=== PATIENT | male | born 1990 | race African-American/Black ===

== ENCOUNTER 2023-03-04 22:34 | Observation (INO) | payer OTHER ==
[2023-03-04] MEDS ORDERED: SODIUM CHLORIDE 0.9% 1,000 ML IV STA (22:43)
[2023-03-04] MEDS ORDERED: NITROGLYCERIN SL TABS 0.4 MG TAB SUBLINGUAL STA (22:43)
[2023-03-04] MEDS ORDERED: METOPROLOL TARTRATE 5 MG/5 ML VIAL IVP STA (22:43)
[2023-03-04] MEDS ORDERED: ASPIRIN 81 MG PO STA (22:43)
[2023-03-04] MEDS ORDERED: THIAMINE 100 MG/ML 2 ML VIAL IM STA (22:52)
[2023-03-04] MEDS ORDERED: LORazepam 1 MG TAB PO PRN ×2 (22:52)
--- NOTE | 2023-03-04 23:05 | ED ---
General Adult HPI - General Chief complaint: Chest Pain Stated complaint: Chest Pain Time Seen by Provider: 03/04/23 22:35 Source: patient, RN notes reviewed, old records reviewed Mode of arrival: EMS Limitations: no limitations - History of Present Illness Initial comments: Patient is a 32-year-old male who presents emergency Department complaining of multiple days of chest pain. Patient has a significant history for chronic neuropathy, without his gabapentin medication for multiple weeks as well as chronic intermittent chest pain without his Lopressor for multiple weeks. Also has a history of tachycardia. Has a history of a pericardial window status post pericardial effusion of unknown etiology which, per patient physicians were unable to discover why accumulated. Denies any history of cardiac stents. Denies any history cardiac stents, CAD. Is complaining of typical right lower extremity pain when he is missing his gabapentin as well as some right-sided chest pain that is not reproducible on palpation but somewhat reproducible with movement. Endorses some mild discomfort when breathing due to the pain. Endorses some mild lower abdominal pain that is not specifically located. Patient does have a history of alcohol abuse as well as alcohol withdrawals with seizures. Last alcohol drink was earlier this evening, drinking 3 shots. Denies feeling like he is in withdrawals at this time. Called EMS over concern for his chest pain which is not improving, and the fact that he is out of his medications. He follows up in [facility] with a civil engineering manager there. - Related Data Allergies Allergy/AdvReac Type Severity Reaction Status Date / Time No Known Allergies Allergy Verified 03/04/23 22:36 Review of Systems ROS Statement: Those systems with pertinent positive or pertinent negative responses have been documented in the HPI. Review of Systems: CONST: Denies fever EYES: Denies blurry vision ENT: Denies nasal congestion C/V: Endorses right-sided chest pain RESP: Denies shortness of breath GI: Endorses nonspecific abdominal pain : Denies dysuria SKIN: Denies rash. MSK: Denies joint pain. NEURO: Denies headache ROS Other: All systems not noted in ROS Statement are negative. Past Medical History Past Medical History: CVA/TIA, Hypertension History of Any Multi-Drug Resistant Organisms: None Reported Past Psychological History: No Psychological Hx Reported Smoking Status: Current every day smoker Past Alcohol Use History: Daily Past Drug Use History: None Reported General Exam - General Exam Comments Initial Comments: General: He is in mild distress secondary to chest pain HEAD: Normal with no signs of head trauma. EYES: PERRLA, EOMI, conjunctiva normal, no discharge. ENT: Hearing grossly intact, normal oropharynx. RESPIRATORY: Clear breath sounds bilaterally. No wheezes, rales, or rhonchi. C/V: Tachycardic with regular rhythm. S1 and S2 auscultated, no edema, peripheral pulses 2+ and intact throughout ABD: Abd is soft, nontender, nondistended. No obvious focal tenderness on palpation. EXT: Normal range of motion, no obvious deformity SKIN: No rashes or lesions observed on exposed skin. NEURO: Alert and oriented x 4. Cranial nerves II-XII intact. No focal sensory or strength deficits.. No tremors. No tongue fasciculations. Limitations: no limitations Course Vital Signs 03/04/23 03/04/23 03/04/23 22:36 22:43 22:51 Temperature 98.1 F Pulse Rate 129 H 112 H 123 H Pulse Rate [ Pulse Oximetery ] Respiratory 20 18 Rate Blood Pressure 196/134 177/131 169/135 O2 Sat by Pulse 100 Oximetry 03/04/23 03/04/23 03/04/23 22:53 23:02 23:21 Temperature Pulse Rate 116 H 79 Pulse Rate [ 114 H Pulse Oximetery ] Respiratory 20 15 Rate Blood Pressure 155/114 174/132 O2 Sat by Pulse 97 98 Oximetry 03/05/23 03/05/23 03/05/23 00:05 00:41 00:45 Temperature Pulse Rate 82 75 Pulse Rate [ Pulse Oximetery ] Respiratory 18 18 Rate Blood Pressure 185/134 187/140 185/132 O2 Sat by Pulse 99 97 Oximetry 03/05/23 03/05/23 03/05/23 01:06 01:31 02:00 Temperature Pulse Rate 94 93 98 Pulse Rate [ Pulse Oximetery ] Respiratory 18 18 Rate Blood Pressure 179/127 163/117 168/120 O2 Sat by Pulse Oximetry 03/05/23 03:00 Temperature Pulse Rate 97 Pulse Rate [ Pulse Oximetery ] Respiratory 18 Rate Blood Pressure 162/119 O2 Sat by Pulse 97 Oximetry Medical Decision Making - Medical Decision Making Was pt. sent in by a medical professional or institution (, PA, SCENE PAINTER, urgent care, hospital, or [facility]...) When possible be specific @ -No Did you speak to anyone other than the patient for history (EMS, parent, family, police, friend...)? What history was obtained from this source @ -No Did you review nursing and triage notes (agree or disagree)? Why? @ -I reviewed and agree with nursing and triage notes Were old charts reviewed (outside hosp., previous admission, EMS record, old EKG, old radiological studies, urgent care reports/EKG's, [facility] records)? Report findings @ -No old charts available for review Differential Diagnosis (chest pain, altered mental status, abdominal pain women, abdominal pain men, vaginal bleeding, weakness, fever, dyspnea, syncope, headache, dizziness, GI bleed, back pain, seizure, CVA, palpatations, mental health, musculoskeletal)? @ -Differential Chest Pain: Stable Angina, Unstable Angina, STEMI, NSTEMI Aortic Dissection, Pneumothorax, Musculoskeletal, Esophageal Spasm GERD, Cholecystitis, Pancreatitis, Zoster, this is not meant to be an all-inclusive list. EKG interpreted by me (3pts min.). @ -As above X-rays interpreted by me (1pt min.). @ -Chest x-ray revealed no obvious cardiopulmonary process. CT interpreted by me (1pt min.). @ -CT of the aorta revealed no obvious aortic injury, dissection, PE. U/S interpreted by me (1pt. min.). @ -None done What testing was considered but not performed or refused? (CT, X-rays, U/S, labs)? Why? @ -None What meds were considered but not given or refused? Why? @ -None Did you discuss the management of the patient with other professionals (professionals i.e. , PA, SCENE PAINTER, lab, RT, psych nurse, social media director, shot tube machine tender, teacher, supply requirements officer, piano case maker)? Give summary @ -Discussed admission with Dr. Suarez who is city call who accepted the patient. Was smoking cessation discussed for >3mins.? @ -No Was critical care preformed (if so, how long)? @ -yes, 35 min Were there social determinants of health that impacted care today? How? (Homelessness, low income, unemployed, alcoholism, drug addiction, transporta tion, low edu. Level, literacy, decrease access to med. care, usp, rehab)? @ -No Was there de-escalation of care discussed even if they declined (Discuss DNR or withdrawal of care, Hospice)? DNR status @ -No What co-morbidities impacted this encounter? (DM, HTN, Smoking, COPD, CAD, Cancer, CVA, ARF, Chemo, Hep., AIDS, mental health diagnosis, sleep apnea, morbid obesity)? @ -Pericardial effusion status post pericardial window, hypertension, chronic neuropathy Was patient admitted / discharged? Hospital course, mention meds given and route, prescriptions, significant lab abnormalities, going to OR and other pertinent info. @ -Based on the patient's presentation and physical exam, and is concerned for possible cardiopulmonary etiology for his current symptoms. Cannot rule out aortic injury due to his history of previous pericardial effusion as well as him having what he states is chronic pain in his right lower extremity but also having nonspecific abdominal pain as well as the chest pain. Has been noncompliant with medications and presents hypertensive and tachycardic. Received aspirin from EMS. Also received a nitro which he states may have mi nimally improved his chest pain. We will obtain cardiopulmonary labs. Also we'll obtain an aortic computed tomography scan and a chest x-ray. We will attempt treatment of this chest pain with further nitroglycerin tablets. I'll call withdrawal protocol was ordered for him as well, and currently does not appear to be in any alcohol withdrawals. He will receive a 1 L fluid bolus as well as doses of his Lopressor. He was in agreement this plan. EKG shows sinus tachycardia, with T-wave inversions in V5 and V6. Unknown chronicity. Nitro tablets has not improved symptoms after administering 3 sublingual tabs. This time we will switch to his normal gabapentin as well as provide him with metoprolol and he was in agreement this plan. Patient's imaging is unremarkable. Laboratory studies are remarkable for a hypomagnesemia of 1.1 which is replenished. Patient also has an elevated tropo alicia in the setting of chest pain that is atypical. Patient's acutely intoxicated with alcohol at 346. On reevaluation, patient is feeling somewhat improved. Blood pressure still elevated but heart rate is under better control. I will provide him with a dose of hydralazine. We did discuss his workup. He will be started on a heparin drip over concern for an NSTEMI in the setting of atypical chest pain, however his chest pain is improved at this time. He was in agreement with this plan. Cardiology is consulted to evaluate the patient in the morning. I spoke with the admitting physician, Dr. Suarez who accepted the admission. Request sent to [facility] for records for the patient. Undiagnosed new problem with uncertain prognosis? @ -No Drug Therapy requiring intensive monitoring for toxicity (Heparin, Nitro, Insul in, Cardizem)? @ -Heparin Were any procedures done? @ -No Diagnosis/symptom? @ -Chest pain, concern for NSTEMI. Acute, or Chronic, or Acute on Chronic? @ -Acute Uncomplicated (without systemic symptoms) or Complicated (systemic symptoms)? @ -Uncomplicated Side effects of treatment? @ -none Exacerbation, Progression, or Severe Exacerbation] @ -no Poses a threat to life or bodily function? @ -Potentially yes Diagnosis/symptom? @ -Hypomagnesemia Acute, or Chronic, or Acute on Chronic? @ -Acute Uncomplicated (without systemic symptoms) or Complicated (systemic symptoms)? @ -Uncomplicated Side effects of treatment? @ -none Exacerbation, Progression, or Severe Exacerbation] @ -no Poses a threat to life or bodily function? @ -Yes Diagnosis/symptom? @ -Alcohol intoxication with history of withdrawal Acute, or Chronic, or Acute on Chronic? @ -Acute Uncomplicated (without systemic symptoms) or Complicated (systemic symptoms)? @ -Uncomplicated Side effects of treatment? @ -none Exacerbation, Progression, or Severe Exacerbation] @ -no Poses a threat to life or bodily function? @ -Potentially if the patient enters withdrawals. Diagnosis/symptom? @ -Hypertension, medication noncompliance Acute, or Chronic, or Acute on Chronic? @ -Acute on chronic Uncomplicated (without systemic symptoms) or Complicated (systemic symptoms)? @ -Uncomplicated Side effects of treatment? @ -none Exacerbation, Progression, or Severe Exacerbation] @ -no Poses a threat to life or bodily function? @ -no - Lab Data Result diagrams: 03/04/23 22:47 03/04/23 22:47 Lab Results 03/04/23 03/04/23 03/04/23 Range/Units 00:05 22:47 22:47 WBC 3.0 L (3.8-10.6) k/uL RBC 4.06 L (4.30-5.90) m/uL Hgb 12.8 L (13.0-17.5) gm/dL Hct 36.6 L (39.0-53.0) % MCV 90.2 (80.0-100.0) fL MCH 31.5 (25.0-35.0) pg MCHC 34.9 (31.0-37.0) g/dL RDW 14.5 (11.5-15.5) % Plt Count 188 (150-450) k/uL MPV 8.8 Neutrophils % (Manual) 18 % Lymphocytes % (Manual) 72 % Monocytes % (Manual) 10 % Neutrophils # (Manual) 0.54 L (1.3-7.7) k/uL Lymphocytes # (Manual) 2.16 (1.0-4.8) k/uL Monocytes # (Manual) 0.30 (0-1.0) k/uL Nucleated RBCs 2 H (0-0) /100 WBC Manual Slide Review Performed Polychromasia Present Poikilocytosis (manual Present PT 11.8 (9.0-12.0) sec INR 1.1 (<1.2) APTT 22.5 (22.0-30.0) sec Sodium (137-145) mmol/L Potassium (3.5-5.1) mmol/L Chloride (98-107) mmol/L Carbon Dioxide (22-30) mmol/L Anion Gap mmol/L BUN (9-20) mg/dL Creatinine (0.66-1.25) mg/dL Est GFR (CKD-EPI)AfAm (>60 ml/min/1.73 sqM) Est GFR (CKD-EPI)NonAf (>60 ml/min/1.73 sqM) Glucose (74-99) mg/dL Calcium (8.4-10.2) mg/dL Magnesium (1.6-2.3) mg/dL Total Bilirubin (0.2-1.3) mg/dL AST (17-59) U/L ALT (4-49) U/L Alkaline Phosphatase (38-126) U/L Troponin I (0.000-0.034) ng/mL NT-Pro-B Natriuret Pep pg/mL Total Protein (6.3-8.2) g/dL Albumin (3.5-5.0) g/dL Lipase (23-300) U/L Urine Color Yellow Urine Appearance Clear (Clear) Urine pH 7.0 (5.0-8.0) Ur Specific Hurley 1.014 (1.001-1.035) Urine Protein 3+ H (Negative) Urine Glucose (UA) Negative (Negative) Urine Ketones Negative (Negative) Urine Blood Trace H (Negative) Urine Nitrite Negative (Negative) Urine Bilirubin Negative (Negative) Urine Urobilinogen <2.0 (<2.0) mg/dL Ur Leukocyte Esterase Negative (Negative) Urine RBC 1 (0-5) /hpf Urine WBC 1 (0-5) /hpf Hyaline Casts 7 H (0-2) /lpf Urine Mucus Rare H (None) /hpf Serum Alcohol mg/dL 03/04/23 03/04/23 03/04/23 Range/Units 22:47 22:47 22:47 WBC (3.8-10.6) k/uL RBC (4.30-5.90) m/uL Hgb (13.0-17.5) gm/dL Hct (39.0-53.0) % MCV (80.0-100.0) fL MCH (25.0-35.0) pg MCHC (31.0-37.0) g/dL RDW (11.5-15.5) % Plt Count (150-450) k/uL MPV Neutrophils % (Manual) % Lymphocytes % (Manual) % Monocytes % (Manual) % Neutrophils # (Manual) (1.3-7.7) k/uL Lymphocytes # (Manual) (1.0-4.8) k/uL Monocytes # (Manual) (0-1.0) k/uL Nucleated RBCs (0-0) /100 WBC Manual Slide Review Polychromasia Poikilocytosis (manual PT (9.0-12.0) sec INR (<1.2) APTT (22.0-30.0) sec Sodium 145 (137-145) mmol/L Potassium 3.7 (3.5-5.1) mmol/L Chloride 104 (98-107) mmol/L Carbon Dioxide 28 (22-30) mmol/L Anion Gap 13 mmol/L BUN 6 L (9-20) mg/dL Creatinine 0.55 L (0.66-1.25) mg/dL Est GFR (CKD-EPI)AfAm >90 (>60 ml/min/1.73 sqM) Est GFR (CKD-EPI)NonAf >90 (>60 ml/min/1.73 sqM) Glucose 123 H (74-99) mg/dL Calcium 8.6 (8.4-10.2) mg/dL Magnesium 1.1 L (1.6-2.3) mg/dL Total Bilirubin 1.1 (0.2-1.3) mg/dL AST 93 H (17-59) U/L ALT 62 H (4-49) U/L Alkaline Phosphatase 97 (38-126) U/L Troponin I 0.050 H* (0.000-0.034) ng/mL NT-Pro-B Natriuret Pep 188 pg/mL Total Protein 7.8 (6.3-8.2) g/dL Albumin 4.3 (3.5-5.0) g/dL Lipase 60 (23-300) U/L Urine Color Urine Appearance (Clear) Urine pH (5.0-8.0) Ur Specific Hurley (1.001-1.035) Urine Protein (Negative) Urine Glucose (UA) (Negative) Urine Ketones (Negative) Urine Blood (Negative) Urine Nitrite (Negative) Urine Bilirubin (Negative) Urine Urobilinogen (<2.0) mg/dL Ur Leukocyte Esterase (Negative) Urine RBC (0-5) /hpf Urine WBC (0-5) /hpf Hyaline Casts (0-2) /lpf Urine Mucus (None) /hpf Serum Alcohol mg/dL 03/04/23 Range/Units 22:53 WBC (3.8-10.6) k/uL RBC (4.30-5.90) m/uL Hgb (13.0-17.5) gm/dL Hct (39.0-53.0) % MCV (80.0-100.0) fL MCH (25.0-35.0) pg MCHC (31.0-37.0) g/dL RDW (11.5-15.5) % Plt Count (150-450) k/uL MPV Neutrophils % (Manual) % Lymphocytes % (Manual) % Monocytes % (Manual) % Neutrophils # (Manual) (1.3-7.7) k/uL Lymphocytes # (Manual) (1.0-4.8) k/uL Monocytes # (Manual) (0-1.0) k/uL Nucleated RBCs (0-0) /100 WBC Manual Slide Review Polychromasia Poikilocytosis (manual PT (9.0-12.0) sec INR (<1.2) APTT (22.0-30.0) sec Sodium (137-145) mmol/L Potassium (3.5-5.1) mmol/L Chloride (98-107) mmol/L Carbon Dioxide (22-30) mmol/L Anion Gap mmol/L BUN (9-20) mg/dL Creatinine (0.66-1.25) mg/dL Est GFR (CKD-EPI)AfAm (>60 ml/min/1.73 sqM) Est GFR (CKD-EPI)NonAf (>60 ml/min/1.73 sqM) Glucose (74-99) mg/dL Calcium (8.4-10.2) mg/dL Magnesium (1.6-2.3) mg/dL Total Bilirubin (0.2-1.3) mg/dL AST (17-59) U/L ALT (4-49) U/L Alkaline Phosphatase (38-126) U/L Troponin I (0.000-0.034) ng/mL NT-Pro-B Natriuret Pep pg/mL Total Protein (6.3-8.2) g/dL Albumin (3.5-5.0) g/dL Lipase (23-300) U/L Urine Color Urine Appearance (Clear) Urine pH (5.0-8.0) Ur Specific Hurley (1.001-1.035) Urine Protein (Negative) Urine Glucose (UA) (Negative) Urine Ketones (Negative) Urine Blood (Negative) Urine Nitrite (Negative) Urine Bilirubin (Negative) Urine Urobilinogen (<2.0) mg/dL Ur Leukocyte Esterase (Negative) Urine RBC (0-5) /hpf Urine WBC (0-5) /hpf Hyaline Casts (0-2) /lpf Urine Mucus (None) /hpf Serum Alcohol 346 H* mg/dL - EKG Data -: EKG Interpreted by Me EKG Comments: 12-lead Electrocardiogram Interpretation Note EKG was reviewed and interpreted by myself. 12-lead ECG performed at 2237 is interpreted by me as revealing sinus tachycardia at a rate of 121 beats per minute. Left axis deviation. ME interval is 160 ms, QRS duration is 95 ms, QTc is 495 ms.. There were no ST abnormalities to suggest myocardial ischemia or injury. There are T-wave inversions in V5 and V6. R wave progression across the precordium was satisfactory. No prior EKG for comparison. Critical Care Time Critical Care Time: Yes Total Critical Care Time: 35 Disposition Clinical Impression: Chest pain, Elevated troponin, Hypomagnesemia, Alcohol intoxication, Hyp ertension, Noncompliance with medication regimen Disposition: ADMITTED IP TO THIS HOSP Condition: Stable Time of Disposition: 01:45
[2023-03-04] MEDS ORDERED: GABAPENTIN 100 MG CAP PO STA (23:09)
[2023-03-04] MEDS: METOPROLOL TARTRATE 25 MG TAB PO SCH (23:16)
--- NOTE | 2023-03-04 23:18 | XR ---
EXAMINATION TYPE: XR chest 1V portable DATE OF EXAM: 03/04/2023 11:02 PM COMPARISON: None TECHNIQUE: XR chest 1V portable Portable AP radiograph of the chest. CLINICAL INDICATION:Male, 32 years old with history of chest pain; FINDINGS: Lungs/Pleura: There is no evidence of pleural effusion, focal consolidation, or pneumothorax. Pulmonary vascularity: Unremarkable. Heart/mediastinum: Cardiomediastinal silhouette is unremarkable. Musculoskeletal: No acute osseous pathology. IMPRESSION: No acute cardiopulmonary disease/process.
[2023-03-04 23:26] LABS: HCT 36.6 % (39.0-53.0); HGB 12.8 gm/dL (13.0-17.5); MCH 31.5 pg (25.0-35.0); MCHC 34.9 g/dL (31.0-37.0); MCV 90.2 fL (80.0-100.0); Mean Platelet Volume 8.8; Platelet Count 188 k/uL (150-450); RBC 4.06 m/uL (4.30-5.90); RDW 14.5 % (11.5-15.5)
[2023-03-04 23:30] LABS: ALT 62 U/L (4-49); African American GFR (CKD) >90 (>60 ml/min/1.73 sqM); Anion Gap 13 mmol/L; Blood Urea Nitrogen 6 mg/dL (9-20); Calcium 8.6 mg/dL (8.4-10.2); Carbon Dioxide 28 mmol/L (22-30); Chloride 104 mmol/L (98-107); Glucose 123 mg/dL (74-99); Lipase 60 U/L (23-300); Non-African American GFR(CKD) >90 (>60 ml/min/1.73 sqM); Sodium 145 mmol/L (137-145); Total Bilirubin 1.1 mg/dL (0.2-1.3)
[2023-03-04 23:31] LABS: INR 1.1 (<1.2); Partial Thromboplastin Time 22.5 sec (22.0-30.0); Prothrombin Time 11.8 sec (9.0-12.0)
[2023-03-04 23:38] LABS: Magnesium 1.1 mg/dL (1.6-2.3); Potassium 3.7 mmol/L (3.5-5.1); Total Protein 7.8 g/dL (6.3-8.2)
[2023-03-04 23:39] LABS: AST 93 U/L (17-59); Albumin 4.3 g/dL (3.5-5.0); Alkaline Phosphatase 97 U/L (38-126)
[2023-03-05 00:13] LABS: Lymphocytes # (M) 2.16 k/uL (1.0-4.8); Neutrophils # (M) 0.54 k/uL (1.3-7.7); Neutrophils % (M) 18 %; Nucleated Red Blood Cells 2 /100 WBC (0-0); Total Cells Counted 100
[2023-03-05 00:14] LABS: Poikilocytosis (M) Present; Polychromasia Present
[2023-03-05 00:34] LABS: Appearance,Urine Clear (Clear); Bilirubin,Urine Negative (Negative); Blood,Urine Trace (Negative); Color,Urine Yellow; Glucose,Urine (UA) Negative (Negative); Hyaline Casts,Urine 7 /lpf (0-2); Ketones,Urine Negative (Negative); Leukocyte Esterase,Urine Negative (Negative); Mucus,Urine Rare /hpf; Nitrite,Urine Negative (Negative); Protein,Urine 3+ (Negative); RBC,Urine 1 /hpf (0-5); Specific Gravity,Urine 1.014 (1.001-1.035); Urobilinogen,Urine <2.0 mg/dL (<2.0); WBC,Urine 1 /hpf (0-5)
[2023-03-05] MEDS: MAGNESIUM SULFATE-D5W PMX 1 GM in DEXTROSE/WATER 1 100ML.BAG IVPB SCH ×6 (00:39→23:52)
[2023-03-05] MEDS ORDERED: hydrALAZINE HCL 20 MG/ML 1 ML VIAL IVP STA ×2 (00:49→02:52)
--- NOTE | 2023-03-05 02:05 | CT ---
EXAM: CT Angiography Chest With Intravenous Contrast CLINICAL HISTORY: ITS.REASON CT Reason: cp/abd pain. history of pericardial window. TECHNIQUE: Axial computed tomographic angiography images of the chest with intravenous contrast. CTDI is 40.89 mGy and DLP is 444.65 mGy-cm. This CT exam was performed using one or more of the following dose reduction techniques: automated exposure control, adjustment of the mA and/or kV according to patient size, and/or use of iterative reconstruction technique. MIP reconstructed images were created and reviewed. COMPARISON: No relevant prior studies available. FINDINGS: Pulmonary arteries: Unremarkable. No pulmonary embolism. Aorta: No acute findings.. Normal caliber. No dissection. Lungs: Unremarkable. Pleural space: Unremarkable. Heart: Unremarkable. Bones/joints: No acute fracture. Soft tissues: Unremarkable. Lymph nodes: Unremarkable. IMPRESSION: Normal chest CTA. No pulmonary embolism. EXAM: CT Angiography Abdomen and Pelvis With Intravenous Contrast CLINICAL HISTORY: ITS.REASON CT Reason: cp/abd pain. history of pericardial window. TECHNIQUE: Axial computed tomographic angiography images of the abdomen and pelvis with intravenous contrast. CTDI is 40.89 mGy and DLP is 444.65 mGy-cm. This CT exam was performed using one or more of the following dose reduction techniques: automated exposure control, adjustment of the mA and/or kV according to patient size, and/or use of iterative reconstruction technique. MIP reconstructed images were created and reviewed. COMPARISON: No relevant prior studies available. FINDINGS: VASCULATURE: Aorta: No acute findings. No abdominal aortic aneurysm. No dissection. Celiac trunk and mesenteric arteries: No acute findings. No occlusion or significant stenosis. Renal arteries: No acute findings. No occlusion or significant stenosis. Iliac arteries: No acute findings. No occlusion or significant stenosis. Lung bases: Unremarkable. No mass. No consolidation. ABDOMEN: Liver: Unremarkable. No mass. Gallbladder and bile ducts: Unremarkable. No calcified stones. No ductal dilation. Pancreas: Unremarkable. No ductal dilation. No mass. Spleen: Unremarkable. No splenomegaly. Adrenals: Unremarkable. No mass. Kidneys and ureters: Unremarkable. No hydronephrosis. No solid mass. Stomach and bowel: Unremarkable. No obstruction. No mucosal thickening. PELVIS: Appendix: No findings to suggest acute appendicitis. Bladder: Unremarkable. No mass. Reproductive: Unremarkable as visualized. ABDOMEN and PELVIS: Intraperitoneal space: Unremarkable. No significant fluid collection. No free air. Bones/joints: No acute fracture. No dislocation. Soft tissues: Unremarkable. Lymph nodes: Unremarkable. No enlarged lymph nodes. IMPRESSION: Normal arteries of the abdomen and pelvis.
[2023-03-05] MEDS ORDERED: KETOROLAC 15 MG/ML 1 ML VIAL IVP PRN (02:16)
[2023-03-05] MEDS ORDERED: NALOXONE 0.4 MG/ML 1 ML VIAL IV PRN (02:16)
[2023-03-05] MEDS ORDERED: HEPARIN SODIUM 1,000 UN/ML (10ML VL) IV ONE (02:22)
[2023-03-05] MEDS ORDERED: HEPARIN SODIUM 1,000 UN/ML (10ML VL) IV PRN (02:22)
[2023-03-05] MEDS ORDERED: HEPARIN SOD,PORK IN 0.45% NACL 25,000 UNIT in 0.45% NACL 1 250ML.BAG IV SCH (02:30)
[2023-03-05] MEDS: LORazepam 1 MG TAB PO PRN (02:49)
[2023-03-05] MEDS ORDERED: DOBUTamine DRIP for NUC MED 500 MG in DEXTROSE/WATER 1 250ML.BAG IV PRN (08:58)
--- NOTE | 2023-03-05 09:06 | P.CRDCN ---
History of Present Illness Consult date: 03/05/23 History of present illness: History of Present Illness: The patient is a 32-year-old male with a history of hypertension, chronic tobacco use and alcohol intake who presented after running out of his medication for over a week, complaining of a headache, not feeling well and had some right- sided chest discomfort. The discomfort was not exertional pattern. The patient has a history of neuropathy. He has no exertional chest pain. His breathing is stable he denies any history of PND, orthopnea or peripheral edema. He has no palpitations or syncope. He had a questionable history of CVA, the records are not available from his prior admission in [place]. He has a history of pancreatitis and daily alcohol intake. He is usually active according to him and has no exertional chest discomfort. Been seen by a physician recently. He has a prior history of pericarditis in 2011. His initial troponin was 0.05 subsequently 0.017 and 0.015. There is no evidence of acute ST segment changes on his EKG. Medications: The patient was supposed to be on metoprolol and gabapentin according to him but has not taken any for a while. Review of Systems: Respiratory: No history of asthma, bronchitis or recent cough. GI: No nausea or vomiting . No history of peptic ulcer disease. No recent GI bleed. : No hematuria or dysuria. Nervous System: No seizure. He was told that he had a prior stroke although details are not available Physical Examination: 32-year-old male, alert and oriented no apparent distress,Blood pressure 142/109, Heart rate 90 Head: Normocephalic. Eyes: Sclerae nonicteric. Neck: Good carotid upstroke, no bruit, no jugular venous distention. Lungs: Clear to auscultation. Heart: Regular rate and rhythm, S1-S2, no S3, plus S4, no rub. No murmur. Abdomen: Soft nontender, positive bowel sounds no organomegaly. Extremities: No edema, intact distal pulses. Labs: Potassium 3.7, hemoglobin 12.8, WBC 3.0. BUN 6, creatinine 0.55. Troponin 0.05 , 0.017, 0.015. NT proBNP 188. Computed tomography scan of the chest showed no evidence of pulmonary embolism. Chest x-ray unremarkable EKG: Sinus mechanism rate of [address] segment changes consistent with LVH Impression: 1. Hypertension, elevated, related to noncompliance, patient was not taking his medication 2. Troponin elevation on one sample no evidence of acute cardiac ischemia 3. Chronic tobacco use 4. Chronic alcohol intake 5. History of pericarditis Plan: 1. Restart beta bossman 2. Add amlodipine 3. Obtain an echocardiogram with Doppler 4. Dobutamine stress echocardiogram 5. If no evidence of stress-induced ischemia no further cardiac workup will be needed. 6. Smoking and alcohol cessation 7. Thank you for this consult we will follow with you. Past Medical History Past Medical History: CVA/TIA, Hypertension History of Any Multi-Drug Resistant Organisms: None Reported Past Psychological History: No Psychological Hx Reported Smoking Status: Current every day smoker Past Alcohol Use History: Daily Past Drug Use History: None Reported Medications and Allergies Home Medications Medication Instructions Recorded Confirmed Type No Known Home Medications 03/05/23 03/05/23 History Allergies Allergy/AdvReac Type Severity Reaction Status Date / Time No Known Allergies Allergy Verified 03/05/23 07:00 Physical Exam Vitals: Vital Signs Temp Pulse Pulse Resp BP Pulse Ox 03/05/23 05:00 105 H 18 142/109 97 03/05/23 03:59 101 H 17 155/114 97 03/05/23 03:00 97 18 162/119 97 03/05/23 02:00 98 18 168/120 03/05/23 01:31 93 163/117 03/05/23 01:06 94 18 179/127 03/05/23 00:45 185/132 03/05/23 00:41 75 18 187/140 97 03/05/23 00:05 82 18 185/134 99 03/04/23 23:21 79 15 174/132 98 03/04/23 23:02 116 H 20 155/114 97 03/04/23 22:53 114 H 03/04/23 22:51 123 H 169/135 03/04/23 22:43 98.1 F 112 H 18 177/131 100 03/04/23 22:36 129 H 20 196/134 Intake and Output 03/04/23 03/05/23 03/05/23 22:59 06:59 14:59 Other: Weight 68.039 kg Results 03/04/23 22:47 03/04/23 22:47 Cardiac Enzymes 03/04/23 03/04/23 03/05/23 Range/Units 22:47 22:47 02:55 AST 93 H (17-59) U/L Troponin I 0.050 H* 0.017 (0.000-0.034) ng/mL 03/05/23 Range/Units 08:04 AST (17-59) U/L Troponin I 0.015 (0.000-0.034) ng/mL Coagulation 03/04/23 03/05/23 Range/Units 22:47 08:04 PT 11.8 (9.0-12.0) sec APTT 22.5 36.5 H (22.0-30.0) sec CBC 03/04/23 Range/Units 22:47 WBC 3.0 L (3.8-10.6) k/uL RBC 4.06 L (4.30-5.90) m/uL Hgb 12.8 L (13.0-17.5) gm/dL Hct 36.6 L (39.0-53.0) % Plt Count 188 (150-450) k/uL Comprehensive Metabolic Panel 03/04/23 Range/Units 22:47 Sodium 145 (137-145) mmol/L Potassium 3.7 (3.5-5.1) mmol/L Chloride 104 (98-107) mmol/L Carbon Dioxide 28 (22-30) mmol/L BUN 6 L (9-20) mg/dL Creatinine 0.55 L (0.66-1.25) mg/dL Glucose 123 H (74-99) mg/dL Calcium 8.6 (8.4-10.2) mg/dL AST 93 H (17-59) U/L ALT 62 H (4-49) U/L Alkaline Phosphatase 97 (38-126) U/L Total Protein 7.8 (6.3-8.2) g/dL Albumin 4.3 (3.5-5.0) g/dL Current Medications Generic Name Dose Route Start Last Admin Trade Name Freq PRN Reason Stop Dose Admin Ketorolac Tromethamine 15 mg 03/05/23 02:16 Ketorolac 15 Mg/Ml 1 Ml Vial IVP 03/08/23 02:21 Q6HR PRN Moderate Pain (Scale 4 to 6) Lorazepam 0.5 mg 03/04/23 22:52 Lorazepam 0.5 Mg Tab PO Q4HR PRN Ciwa 4 To 5 Lorazepam 1 mg 03/04/23 22:52 Lorazepam 1 Mg Tab PO Q4HR PRN Ciwa 6 To 7 Lorazepam 2 mg 03/04/23 22:52 Lorazepam 1 Mg Tab PO Q2HR PRN Ciwa 10 or greater Lorazepam 2 mg 03/04/23 22:52 03/05/23 02:49 Lorazepam 1 Mg Tab PO 2 mg Q3HR PRN Administration Ciwa 8 To 9 Lorazepam 1 mg 03/04/23 22:52 Lorazepam 1 Mg Tab PO Q1HR PRN Alcohol Withdrawal Metoprolol Tartrate 25 mg 03/04/23 22:45 03/04/23 23:16 Metoprolol Tartrate 25 Mg Tab PO 25 mg BID CIRILO Administration Naloxone HCl 0.2 mg 03/05/23 02:16 Naloxone 0.4 Mg/Ml 1 Ml Vial IV Q2M PRN Opioid Reversal Thiamine HCl 100 mg 03/05/23 09:00 Thiamine 100 Mg Tab PO DAILY CIRILO Intake and Output 03/04/23 03/05/23 03/05/23 22:59 06:59 14:59 Other: Weight 68.039 kg 03/04/23 22:47 03/04/23 22:47
[2023-03-05] MEDS ORDERED: amLODIPine 5 MG TAB PO SCH (09:15)
[2023-03-05] MEDS: LORazepam 0.5 MG TAB PO PRN ×3 (09:42→23:52)
[2023-03-05] MEDS: THIAMINE 100 MG TAB PO SCH (09:42)
[2023-03-05] MEDS: METOPROLOL TARTRATE 25 MG TAB PO SCH ×2 (09:42→20:17)
[2023-03-05] MEDS ORDERED: amLODIPine 5 MG TAB PO STA (11:05)
--- NOTE | 2023-03-05 11:58 | CA ---
Transthoracic Echo Report Name: Arnel Orosco Age: 32 Gender: M : 1990 Exam Date: 03/05/2023 10:41 Exam Location: [facility] Ht (in): 72 Wt (lb): 150 Ordering Physician: Ivan Dela Cruz MD ([id number]) Attending/Referring Phys: Decontamination Worker Nilda Salazar RDCS Procedure CPT: Indications: CP Cardiac Hx: Technical Quality: Good Contrast 1: Total Dose (mL): Contrast 2: Total Dose (mL): MEASUREMENTS (Male / Female) Normal Values 2D ECHO LV Diastolic Diameter PLAX 3.8 cm 4.2 - 5.9 / 3.9 - 5.3 cm LV Systolic Diameter PLAX 2.6 cm IVS Diastolic Thickness 1.4 cm 0.6 - 1.0 / 0.6 - 0.9 cm LVPW Diastolic Thickness 1.5 cm 0.6 - 1.0 / 0.6 - 0.9 cm LV Relative Wall Thickness 0.8 RV Internal Dim ED PLAX 2.7 cm LA Systolic Diameter LX 2.6 cm 3.0 - 4.0 / 2.7 - 3.8 cm LV Diastolic Volume MOD BP 75.1 cm??? 67 - 155 / 56 - 104 cm??? LV Systolic Volume MOD BP 47.3 cm??? 22 - 58 / 19 - 49 cm??? LV Ejection Fraction MOD BP 36.9 % >= 55 % LV Diastolic Volume MOD 4C 69.4 cm??? LV Systolic Volume MOD 4C 35.0 cm??? LV Ejection Fraction MOD 4C 49.6 % LV Diastolic Length 4C 7.7 cm LV Systolic Length 4C 6.3 cm LV Diastolic Volume MOD 2C 76.7 cm??? LV Systolic Volume MOD 2C 51.5 cm??? LV Ejection Fraction MOD 2C 32.9 % LV Diastolic Length 2C 8.9 cm LV Systolic Length 2C 8.3 cm M-MODE Aortic Root Diameter MM 3.6 cm MV E Point Septal Separation 0.4 cm AV Cusp Separation MM 2.7 cm DOPPLER AV Peak Velocity 103.4 cm/s AV Peak Gradient 4.3 mmHg MV Area PHT 8.7 cm??? Mitral E Point Velocity 56.7 cm/s Mitral A Point Velocity 72.3 cm/s Mitral E to A Ratio 0.8 MV Deceleration Time 87.0 ms MV E' Velocity 9.1 cm/s Mitral E to MV E' Ratio 6.2 TR Peak Velocity 240.5 cm/s TR Peak Gradient 23.1 mmHg Right Ventricular Systolic Press 28.1 mmHg FINDINGS Left Ventricle Left ventricular ejection fraction is estimated at 40-45 %. Small left ventricular cavity. Moderate concentric left ventricular hypertrophy. Moderately decreased left ventricular ejection fraction. Ground Glass appearance of the myocardium Right Ventricle Normal right ventricular size and function. Right ventricular systolic pressure within normal limits. Right Atrium Normal right atrial size. Left Atrium Normal left atrial size. Mitral Valve Structurally normal mitral valve. No mitral stenosis, regurgitation or prolapse. Aortic Valve Trileaflet aortic valve. No aortic valve stenosis or regurgitation. Tricuspid Valve Structurally normal tricuspid valve. Mild tricuspid regurgitation. Pulmonic Valve Structurally normal pulmonic valve. No pulmonic regurgitation. Pericardium Normal pericardium. No pericardial effusion. Aorta Normal size aortic root and proximal ascending aorta. CONCLUSIONS Moderate concentric left ventricular hypertrophy with LV systolic dysfunction with an ejection fraction of 40-45% No significant valvular heart disease Consider infiltrative disease Previewed by: Dr. Alexander Joy MD (Electronically Signed) Final Date: 05 March 2023 11:57
[2023-03-05] MEDS: hydroCHLOROthiazide 25 MG TAB PO SCH (14:35)
[2023-03-05 15:26] VITALS: RESP 16
[2023-03-05] MEDS ORDERED: hydrALAZINE HCL 20 MG/ML 1 ML VIAL IVP PRN (17:57)
[2023-03-05] MEDS ORDERED: Magnesium Replacement Protocol 1 EACH MISC MISCELLANE PRN (18:27)
[2023-03-05] MEDS: amLODIPine 5 MG TAB PO SCH (20:17)
[2023-03-05] MEDS: GABAPENTIN 100 MG CAP PO SCH (20:17)
[2023-03-05] MEDS: lamoTRIgine 25 MG TAB PO SCH (20:17)
[2023-03-05 22:15] LABS: African American GFR (CKD) >90 (>60 ml/min/1.73 sqM); Anion Gap 7 mmol/L; Blood Urea Nitrogen 9 mg/dL (9-20); Calcium 9.2 mg/dL (8.4-10.2); Carbon Dioxide 30 mmol/L (22-30); Chloride 99 mmol/L (98-107); Glucose 105 mg/dL (74-99); Non-African American GFR(CKD) >90 (>60 ml/min/1.73 sqM); Potassium 3.5 mmol/L (3.5-5.1); Sodium 136 mmol/L (137-145)
[2023-03-05] MEDS: BUDESONIDE 0.5 MG/2 ML NEBU INHALATION SCH (22:42)
[2023-03-05] MEDS: IPRATROPIUM-ALBUTEROL 3 ML NEB INHALATION SCH (22:42)
--- NOTE | 2023-03-06 00:09 | CT ---
EXAMINATION TYPE: CT angio chest CT DLP: 288 mGycm, Automated exposure control for dose reduction was used. DATE OF EXAM: 03/05/2023 11:38 PM COMPARISON: CTA angiogram one day prior. CLINICAL INDICATION:Male, 32 years old with history of high d-dimer; ELEVATED D-DIMER TECHNIQUE/CONTRAST: CTA scan of the thorax is performed with IV Contrast, patient injected with 68ML mL of Isovue 370, pu lmonary embolism protocol. MIP images are created and reviewed these are created on a separate works tation.. FINDINGS: Pulmonary Artery: There is no evidence for a central filling defect within the pulmonary vasculature to suggest acute pulmonary embolism. Limited evaluation of the segmental and subsegmental branches se condary to bolus timing. The pulmonary artery is of normal size. Lungs/Pleura: No evidence of focal consolidation, pleural effusion or pneumothorax. Right anterior lo wer lung nodule measuring 12 mm Airway: Large airways are patent. Heart: Heart is within normal limits for size. Vasculature: No evidence of aortic aneurysm. Mediastinum: No gross evidence of adenopathy. Partially calcified right pulmonary hilum lymph node se torrey 411 image 92 Musculoskeletal: No acute osseous abnormalities Soft Tissues: Unremarkable. Lower neck: No significant findings. Upper Abdomen: Calcified granulomas in the spleen. IMPRESSION: 1. No evidence of central pulmonary embolism. Limited evaluation of the segmental and subsegmental br anches. 2. 12 mm pulmonary nodule in the anterior aspect of the right lower lung. Short-term follow-up in one to 3-6 months is recommended to ensure stability/resolution. Given some calcified granulomas in the spleen and right pulmonary hilum partially calcified lymph node. This findings likely represents market asset protection manager jordin granulomatous disease.
--- NOTE | 2023-03-06 01:40 | HP ---
HISTORY AND PHYSICAL HISTORY OF PRESENT ILLNESS: This is a 32-year-old white male with hypertension, nicotine addiction, and alcohol intake, who presented after ran out of his meds for a week. He came with headache, right-sided chest discomfort, exertional. No palpitations or syncope. He had questionable history of a CVA , history of pancreatitis, daily alcohol intake. Now he is saying that he has no exertional chest discomfort. Prior history of pericarditis in 2011. Troponins are negative. No ST elevations on his EKG. MEDICATIONS AT HOME: 1. Metoprolol. 2. Gabapentin. He has not taken in a while. REVIEW OF SYSTEMS: A 14-point review of systems otherwise negative. PHYSICAL EXAMINATION: GENERAL: A 32-year-old white male. VITAL SIGNS: Blood pressure 142/109, heart rate 80 to 90, respiratory rate 12 to 14. CARDIOVASCULAR: S1, S2. HEENT: Normocephalic, atraumatic. LUNGS: Clear. HEART: S1, S2. ABDOMEN: Soft. EXTREMITIES: Mild tremor. PSYCH: Fair mood and affect. LABORATORY DATA: Potassium 3.7, hemoglobin is 12.8. EKG, LVH. ASSESSMENT: Hypertension, elevation, noncompliance. Troponin elevation at 1 sample, ischemia is negative. Alcohol intake, alcohol dependence, nicotine addiction, history of pericarditis. Continue blood pressure control with amlodipine, beta blockers. Order echo, dobutamine stress test. If he would be able to go home, but could not go through severe withdrawal. He has prior history of CVA, TIA, hypertension, last pulse is low 100, respiratory rate 16 to 18, blood pressure is 142/109, his weight is 68. Potassium is 3, hemoglobin is 12.3, BUN is 6, creatinine 0.55, AST 293, ALT 62, atypical chest pain. Stress test echo has been ordered. Blood pressure control has been given for passive stress test and echo looks good. He gets home. He had a thoracic aortic CT on admission, which is normal with no PE. Prognosis guarded. Follow up in next 24 to 48 hours pending stress test and echo for discharge. MMODL / IJN: [id number] /
[2023-03-06] MEDS: METOPROLOL TARTRATE 25 MG TAB PO SCH ×2 (05:01→20:38)
[2023-03-06] MEDS ORDERED: DOBUTamine DRIP for NUC MED 500 MG in DEXTROSE/WATER 1 250ML.BAG IV PRN (06:00)
[2023-03-06] MEDS: THIAMINE 100 MG TAB PO SCH (06:31)
[2023-03-06] MEDS: lamoTRIgine 25 MG TAB PO SCH ×2 (06:31→20:38)
[2023-03-06] MEDS: GABAPENTIN 100 MG CAP PO SCH ×3 (06:31→20:38)
[2023-03-06] MEDS: amLODIPine 5 MG TAB PO SCH (06:31)
[2023-03-06] MEDS: hydroCHLOROthiazide 25 MG TAB PO SCH (08:14)
[2023-03-06] MEDS: LORazepam 1 MG TAB PO PRN ×4 (08:14→20:38)
[2023-03-06] MEDS: IPRATROPIUM-ALBUTEROL 3 ML NEB INHALATION SCH ×3 (08:59→20:17)
[2023-03-06] MEDS: BUDESONIDE 0.5 MG/2 ML NEBU INHALATION SCH ×2 (08:59→20:17)
[2023-03-06] MEDS ORDERED: DOBUTamine DRIP for NUC MED 500 MG/250 ML BAG IV ONE (10:00)
[2023-03-06 10:01] LABS: Prothrombin Time 10.8 sec (9.0-12.0)
[2023-03-06 10:15] LABS: ALT 50 U/L (4-49); AST 79 U/L (17-59); African American GFR (CKD) >90 (>60 ml/min/1.73 sqM); Albumin 3.7 g/dL (3.5-5.0); Alkaline Phosphatase 120 U/L (38-126); Anion Gap 8 mmol/L; Blood Urea Nitrogen 9 mg/dL (9-20); Calcium 9.2 mg/dL (8.4-10.2); Carbon Dioxide 30 mmol/L (22-30); Chloride 99 mmol/L (98-107); Glucose 100 mg/dL (74-99); Magnesium 1.8 mg/dL (1.6-2.3); Non-African American GFR(CKD) >90 (>60 ml/min/1.73 sqM); Sodium 137 mmol/L (137-145); Total Bilirubin 1.7 mg/dL (0.2-1.3); Total Protein 7.1 g/dL (6.3-8.2)
[2023-03-06] MEDS ORDERED: Potassium Replacement Protocol 1 EACH MISC MISCELLANE PRN (10:27)
--- NOTE | 2023-03-06 11:00 | CA ---
Dobutamine Stress Echocardiogram Report Arnel Orosco Age: 32 Gender: M : 1990 Exam Date: 03/06/2023 09:32 Exam Location: [facility] Ordering Physician: Nai Coffey Referring Physician: [id number] Wool Hat Hydraulicker: Iza Garcia RDCS Technologist: Ht (in): 72 Wt (lb): 150 Procedure CPT: Indication: CP ICD-9 Codes: Rhythm: Patient History: Typical angina, Diabetes mellitus Cardiac Medications: Beta bossman Medications in past 24 hours: Contrast: Total Dose (mL): Stress Results Protocol: Dobutamine Peak Dose (???g/kg/min): 40 Duration (min:sec): Atropine:(mg) Target HR: 162 Double Product: 80300 Resting HR: 76 Resting BP: 148 / 103 Peak HR: 141 Peak BP: 132 / 96 Max Predicted HR: 190 74 % Max Predicted HR Stress Summary: The patient's target heart rate was not achieved due to effect of medications (eg. B blockers/Ca channel blockers). BP Response: Abnormal fall in BP during stress Reason for Termination: DIRECTED PER ATHLETIC TEAM PHYSICIAN Cardiac Symptoms: NO SYMPTOMS ECG Analysis Resting EKG: Normal sinus rhythm changes of left ventricular hypertrophy Stress EKG: Patient was given intravenous dobutamine over a period off 17 minutes as a protocol achieving 74% of predicted maximal heart rate without chest pain EKG changes are nondiagnostic Arrhythmia: Echo Analysis Base Echo Analysis: Baseline echo shows normal left ventricular size severe concentric left ventricular hypertrophy with normal wall motion and LV function Low Echo Anaylsis: Normal increase in contractility Peak Echo Analysis: Normal hyperdynamic response Recovery Echo: Normal MEASUREMENTS (Male/Female) Normal Values CONCLUSIONS Inconclusive dobutamine stress echo secondary to inability to attain target heart rate 74% of predicted maximal heart rate there is no evidence of coronary artery disease Patient has severe left ventricular hypertrophy and very bright appearance on the echo raising the possibility of of an infiltrative disease Dr. Alexander Joy MD (Electronically Signed) Final Date: 06 March 2023 10:59
[2023-03-06 11:26] LABS: Basophils % (A) 1 %; Eosinophils % (A) 2 %; HCT 36.7 % (39.0-53.0); HGB 12.7 gm/dL (13.0-17.5); Lymphocytes # (A) 0.6 k/uL (1.0-4.8); Lymphocytes % (A) 40 %; MCH 31.5 pg (25.0-35.0); MCHC 34.6 g/dL (31.0-37.0); Mean Platelet Volume 10.8; Monocytes # (A) 0.1 k/uL (0-1.0); Monocytes % (A) 9 %; Neutrophils # (A) 0.8 k/uL (1.3-7.7); Neutrophils % (A) 47 %; Platelet Count 145 k/uL (150-450); RBC 4.03 m/uL (4.30-5.90); RDW 14.1 % (11.5-15.5)
[2023-03-06 11:29] LABS: WBC 1.6 k/uL (3.8-10.6)
[2023-03-06] MEDS: POTASSIUM CHLORIDE ER 20 MEQ TAB.ER PO SCH ×2 (11:30→12:52)
--- NOTE | 2023-03-06 13:13 | P.PN ---
Subjective Progress Note Date: 03/06/23 HISTORY OF PRESENT ILLNESS: The patient is a 32-year-old male with a history of hypertension, chronic tobacco use and alcohol intake who presented after running out of his medication for over a week, complaining of a headache, not feeling well and had some right- sided chest discomfort. The discomfort was not exertional pattern. The patient has a history of neuropathy. He has no exertional chest pain. His breathing is stable he denies any history of PND, orthopnea or peripheral edema. He has no palpitations or syncope. He had a questionable history of CVA, the records are not available from his prior admission in [place]. He has a history of pancreatitis and daily alcohol intake. He is usually active according to him and has no exertional chest discomfort. Been seen by a physician recently. He has a prior history of pericarditis in 2011. His initial troponin was 0.05 subsequently 0.017 and 0.015. There is no evidence of acute ST segment changes on his EKG. Medications: The patient was supposed to be on metoprolol and gabapentin according to him but has not taken any for a while. 03/06/2023 Patient examined this morning at the bedside. Patient denies any further episodes of chest pain or pressure. He denies shortness of breath. Vital signs are stable. Echocardiogram completed revealing ejection fraction 40-45%, groundglass appearance of the myocardium, mild tricuspid regurgitation, consider infiltrative disease. Patient underwent dobutamine stress test this morning. Patient was unable to reach his target heart rate, however no ischemia was noted. PHYSICAL EXAM: VITAL SIGNS: Reviewed. GENERAL: Well-developed in no acute distress. NECK: Supple. No JVD or thyromegaly LUNGS: Respirations even and unlabored. Lungs essentially clear to auscultation bilaterally. HEART: Regular rate and rhythm. S1 and S2 heard. EXTREMITIES: Normal range of motion. No clubbing or cyanosis. Peripheral pulses intact. No lower extremity edema ASSESSMENT: 1. Hypertension, elevated, related to noncompliance, patient was not taking his medication 2. Troponin elevation on one sample no evidence of acute cardiac ischemia 3. Chronic tobacco use 4. Chronic alcohol intake 5. History of pericarditis 6. Cardiomyopathy, unclear if ischemic or nonischemic PLAN: Continue current cardiac medications Discontinue Norvasc Add aspirin 81mg daily Add Lisinopril Recommend cardiac cath tomorrow to evaluate cardiomyopathy If no CAD, recommend cardiac MRI for possible infiltrative disease Follow up in the office with Dr. Dela Cruz Nurse practitioner note has been reviewed by physician. Signing provider agrees with the documented findings, assessment, and plan of care. Objective - Vital Signs Vital signs: Vital Signs Temp 97.9 F 03/06/23 08:08 Pulse 71 03/06/23 11:21 Resp 16 03/06/23 11:21 BP 114/66 03/06/23 11:21 Pulse Ox 99 03/06/23 11:21 FiO2 Intake & Output 03/05/23 03/06/23 03/06/23 18:59 06:59 18:59 Weight 68.039 kg Other: Voiding Method Toilet Toilet # Voids 2 1 - Labs CBC & Chem 7: 03/06/23 08:32 03/06/23 08:32 Labs: Abnormal Lab Results - Last 24 Hours (Table) 03/05/23 03/05/23 03/05/23 Range/Units 17:11 17:11 21:48 WBC (3.8-10.6) k/uL RBC (4.30-5.90) m/uL Hgb (13.0-17.5) gm/dL Hct (39.0-53.0) % Plt Count (150-450) k/uL Neutrophils # (1.3-7.7) k/uL Lymphocytes # (1.0-4.8) k/uL D-Dimer 0.64 H (<0.60) mg/L FEU Sodium 136 L (137-145) mmol/L Potassium (3.5-5.1) mmol/L Creatinine 0.49 L (0.66-1.25) mg/dL Glucose 105 H (74-99) mg/dL Magnesium 1.2 L (1.6-2.3) mg/dL Total Bilirubin (0.2-1.3) mg/dL AST (17-59) U/L ALT (4-49) U/L 03/06/23 03/06/23 Range/Units 08:32 08:32 WBC 1.6 L (3.8-10.6) k/uL RBC 4.03 L (4.30-5.90) m/uL Hgb 12.7 L (13.0-17.5) gm/dL Hct 36.7 L (39.0-53.0) % Plt Count 145 L (150-450) k/uL Neutrophils # 0.8 L (1.3-7.7) k/uL Lymphocytes # 0.6 L (1.0-4.8) k/uL D-Dimer (<0.60) mg/L FEU Sodium (137-145) mmol/L Potassium 3.0 L (3.5-5.1) mmol/L Creatinine 0.54 L (0.66-1.25) mg/dL Glucose 100 H (74-99) mg/dL Magnesium (1.6-2.3) mg/dL Total Bilirubin 1.7 H (0.2-1.3) mg/dL AST 79 H (17-59) U/L ALT 50 H (4-49) U/L
[2023-03-06] MEDS ORDERED: ATORVASTATIN 80 MG TAB PO STA (13:26)
[2023-03-06] MEDS ORDERED: ALPRAZolam 0.5 MG TAB PO PRN (13:26)
[2023-03-06] MEDS ORDERED: ALPRAZolam 0.25 MG TAB PO PRN (13:26)
[2023-03-06] MEDS ORDERED: ASPIRIN 325 MG TAB PO STA (13:26)
[2023-03-06] MEDS ORDERED: NITROGLYCERIN SL TABS 0.4 MG TAB SUBLINGUAL PRN (13:26)
[2023-03-06] MEDS: lisinopriL 5 MG TAB PO SCH ×2 (13:42→20:39)
[2023-03-06] MEDS: ASPIRIN 81 MG PO SCH (13:42)
[2023-03-07] MEDS ORDERED: ATORVASTATIN 80 MG TAB PO ONE (06:00)
[2023-03-07] MEDS ORDERED: ASPIRIN 325 MG TAB PO ONE (06:00)
[2023-03-07] MEDS: THIAMINE 100 MG TAB PO SCH (06:26)
[2023-03-07] MEDS: METOPROLOL TARTRATE 25 MG TAB PO SCH (06:26)
[2023-03-07] MEDS: lamoTRIgine 25 MG TAB PO SCH (06:26)
[2023-03-07] MEDS: ASPIRIN 81 MG PO SCH (06:26)
[2023-03-07] MEDS: GABAPENTIN 100 MG CAP PO SCH ×2 (06:27→16:20)
[2023-03-07] MEDS: lisinopriL 5 MG TAB PO SCH (06:27)
--- NOTE | 2023-03-07 06:39 | PN ---
PROGRESS NOTE SUBJECTIVE: A 32-year-old male was admitted with atypical chest pain. Cardiology cleared him for discharge with normal stress test. Started him on inhaler for possible asthma, started him on Lamictal for bipolar gabapentin. He had a normal stress echo today. OBJECTIVE: CARDIOVASCULAR: S1 and S2. LUNGS: Clear. GI: Soft. ASSESSMENT: Hypertension accelerated, elevated troponin, nicotine addiction aspirin, lisinopril PROGNOSIS: Guarded. MMODL / IJN: [id number] /
[2023-03-07] MEDS ORDERED: HEPARIN SODIUM,PORCINE 10,000 UNIT in SODIUM CHLORIDE 0.9% 1,000 ML IRRIGATION PRN (07:00)
[2023-03-07] MEDS ORDERED: HEPARIN SODIUM,PORCINE 2,500 UNIT in SODIUM CHLORIDE 0.9% 250 ML IRRIGATION PRN (07:00)
[2023-03-07] MEDS: hydroCHLOROthiazide 25 MG TAB PO SCH (07:48)
[2023-03-07] MEDS: IPRATROPIUM-ALBUTEROL 3 ML NEB INHALATION SCH ×2 (08:37→11:59)
[2023-03-07] MEDS: BUDESONIDE 0.5 MG/2 ML NEBU INHALATION SCH (08:37)
[2023-03-07] MEDS ORDERED: VERAPAMIL 2.5 MG/ML 2 ML AMP ONE (09:07)
[2023-03-07] MEDS ORDERED: fentaNYL (PF) 50 MCG/ML 2 ML AMP ONE (09:38)
[2023-03-07] MEDS ORDERED: fentaNYL (PF) 50 MCG/ML 2 ML AMP IVP ONE (10:04)
[2023-03-07] MEDS ORDERED: SODIUM CHLORIDE 0.9% 1,000 ML IV ONE (10:05)
[2023-03-07 10:07] LABS: ALT 49 U/L (4-49); AST 83 U/L (17-59); African American GFR (CKD) >90 (>60 ml/min/1.73 sqM); Albumin 3.8 g/dL (3.5-5.0); Alkaline Phosphatase 96 U/L (38-126); Anion Gap 8 mmol/L; Blood Urea Nitrogen 26 mg/dL (9-20); Carbon Dioxide 26 mmol/L (22-30); Chloride 103 mmol/L (98-107); Glucose 86 mg/dL (74-99); Non-African American GFR(CKD) >90 (>60 ml/min/1.73 sqM); Sodium 137 mmol/L (137-145); Total Bilirubin 1.3 mg/dL (0.2-1.3); Total Protein 7.2 g/dL (6.3-8.2)
[2023-03-07] MEDS ORDERED: MIDAZOLAM 2 MG/2 ML VIAL IVP ONE (10:08)
[2023-03-07] MEDS ORDERED: LIDOCAINE 1% INJ 10MG/ML (5 ML VIAL-PF) SQ ONE (10:08)
[2023-03-07] MEDS ORDERED: VERAPAMIL SYRINGE (5 MG/10 ML) INTRAARTER ONE (10:09)
[2023-03-07 10:11] LABS: Potassium 4.3 mmol/L (3.5-5.1)
[2023-03-07] MEDS ORDERED: HEPARIN SODIUM 1,000 UN/ML (10ML VL) IVP ONE (10:16)
[2023-03-07] MEDS ORDERED: IOPAMIDOL-370 100ML BTL INJ ONE (10:25)
[2023-03-07] MEDS ORDERED: RX INFO: IV CONTRAST WAS GIVEN 1 EACH MISC MISCELLANE PRN (10:35)
--- NOTE | 2023-03-07 10:42 | P.CARDCATH ---
Date of Procedure: 03/07/23 Description of Procedure: Cardiac Catheterization: The patient is a 32-year-old male with a known history of hypertension, chronic tobacco use who presented with chest discomfort and headache. He was hypertensive. He had minimal troponin elevation. His echocardiogram showed severe left ventricular hypertrophy and an ejection fraction 40%. His stress echocardiogram was inconclusive. Recommendations were made regarding cardiac catheterization, the risks and the complications were discussed with the patient who is in full understanding and agreement. Procedure Description: Patient was brought to computer laboratory technician in fasting semi-sedated state after receiving Fentanyl and Benadryl achieiving moderate conscious sedated state. Using Xylocaine Anesthesia and Seldinger technique, a 6-Syrian sheath was introduced in the right radial artery . Subsequently, selective coronary angiography was performed using a 5-Syrian 3.5 bend Katt catheter. Multiple views of the coronary artery including hemiaxial views were obtained. The 5-Syrian pigtail catheter was used to cross the aortic valve and LVEDP was calculated. An LYMAN view of the left ventricle was performed. Following that, catheter and sheath were removed. Hemostasis was obtained with deployment of TR band . There was no immediate complication. Patient was returned to room in stable condition. Of note, the patient received a total of 3500 units of intravenous heparin as well as intra-arterial verapamil. Findings: Left main: This is a large size vessel, bifurcating into LAD and left circumflex, left main has no high-grade stenosis LAD: This is a large size vessel, reaching to the apex with a wraparound apex segment having a rise to a diagonal branch of moderate caliber. The LAD and its branches have no evidence of obstructive coronary artery disease. Left circumflex: This is a large nondominant vessel eating rise to 2 obtuse margin branch, the first one is very proximal and large in caliber. The left circumflex and its branches have no evidence of obstructive disease. RCA: This is a dominant vessel, moderate in caliber, bifurcating into PDA and PLV, the RCA has no evidence of obstructive CAD. Left Ventriculogram: Was performed in the LYMAN view revealed a normal left ventricle size and systolic function ejection fraction is 55-60%, there was no significant mitral regurgitation. Hemodynamics: There was no gradient across the aortic valve , LVEDP was 10-15 mmHg Conclusion: 1. Normal coronary arteries 2. Normal ventricle size and systolic function 3. Right dominance 4. Normal LVEDP Recommendations: The patient will continue on the combination of beta bossman and TRUPTI inhibitor for blood pressure control. As an outpatient I would recommend to proceed with cardiac MRI to evaluate for possible infiltrative cardiomyopathy. The findings and the recommendations were discussed with the patient and he was in full understanding and agreement. Duration of sedation is 21 minutes.
[2023-03-07] MEDS ORDERED: SODIUM CHLORIDE 0.9% 1,000 ML IV SCH (10:45)
[2023-03-07 11:23] VITALS: TEMP 97.7
[2023-03-07 11:56] LABS: ALT 45 U/L (4-49); AST 72 U/L (17-59); African American GFR (CKD) >90 (>60 ml/min/1.73 sqM); Albumin 3.3 g/dL (3.5-5.0); Alkaline Phosphatase 98 U/L (38-126); Anion Gap 6 mmol/L; Blood Urea Nitrogen 23 mg/dL (9-20); Calcium 8.5 mg/dL (8.4-10.2); Carbon Dioxide 28 mmol/L (22-30); Chloride 104 mmol/L (98-107); Glucose 95 mg/dL (74-99); Non-African American GFR(CKD) >90 (>60 ml/min/1.73 sqM); Potassium 3.6 mmol/L (3.5-5.1); Sodium 138 mmol/L (137-145); Total Bilirubin 1.1 mg/dL (0.2-1.3); Total Protein 6.4 g/dL (6.3-8.2)
[2023-03-07 14:26] VITALS: BP 146/75; PULSE 84
[2023-03-07] MEDS ORDERED: SYMBICORT 160-4.5 MCG INHALER INHALATION SCH (20:00)
[2023-03-07] MEDS ORDERED: lamoTRIgine 100 MG TAB PO SCH (21:00)
[2023-03-07] MEDS ORDERED: busPIRone HCl 5 MG TAB PO SCH (21:00)
== END 2023-03-07 16:40 | disposition home or self-care (01) ==
LOC: EC 22:34 → INTOOBSV 03-05 02:16 → OBSVTOIN 03-05 02:16 → 3SCARD 03-05 02:16 → UNDODISOB 03-07 16:40
PROVIDERS: ADMIT Family Medicine; ATTEND Family Medicine
DX: R07.89 Other chest pain (principal); E83.42 Hypomagnesemia; F17.200 Nicotine dependence, unspecified, uncomplicated; F10.220 Alcohol dependence with intoxication, uncomplicated; L92.8 Other granulomatous disorders of the skin and subcutaneous tissue; R77.8 Other specified abnormalities of plasma proteins; I11.9 Hypertensive heart disease without heart failure; R91.1 Solitary pulmonary nodule; I07.1 Rheumatic tricuspid insufficiency; J84.10 Pulmonary fibrosis, unspecified; G62.9 Polyneuropathy, unspecified; I42.8 Other cardiomyopathies; F31.9 Bipolar disorder, unspecified; Z86.73 Personal history of transient ischemic attack (TIA), and cerebral infarction without residual deficits; Z91.148 Patient's other noncompliance with medication regimen for other reason; Z79.899 Other long term (current) drug therapy; Y90.8 Blood alcohol level of 240 mg/100 ml or more
CPT/HCPCS: 96376 ×2; 96375 ×3; 96365 ×2; 96366 ×3; 96361; 96367; 96372; 99291; 36415; 94640 ×3; 94760 ×2; 93005; 93306; 93351; 93458; 85379; 83880; 80053 ×3; 80048; 83690; 83735 ×3; 84484 ×2; 85025 ×2; 85610 ×2; 85730 ×2; 81001; 71045; 71275 ×2; 74174; G0378 ×3; C1769 ×2; C1894; G0480; J2250; J1250; J0360; J3411; J2001; J3010; J1644 ×3; J3475; J1885; Q9967 ×3; 80320

== ENCOUNTER 2023-03-10 02:43 | Emergency (ER) | payer OTHER ==
[2023-03-10 02:54] VITALS: TEMP 98.1
[2023-03-10] MEDS ORDERED: SODIUM CHLORIDE 0.9% 1,000 ML IV ONE (03:03)
--- NOTE | 2023-03-10 03:12 | ED ---
General Adult HPI - General Chief complaint: Dizziness Stated complaint: dizziness Time Seen by Provider: 03/10/23 02:44 Source: patient, EMS Mode of arrival: EMS Limitations: no limitations - History of Present Illness Initial comments: This is a 32-year-old male with a past medical history including "neurogenic diabetes" and hypertension with a recent admission to the hospital and recent cardiac catheterization presented to the emergency department via EMS for lightheadedness. The patient stated that he took his blood pressure medication as prescribed and stated that he felt lightheaded initially. The patient due to his recent issues, called EMS for further evaluation. On arrival, the patient had a normal blood pressure and was resting in bed comfortably. The patient denied any pain but stated that he was intermittently lightheaded. The patient did state that he was nauseous and was given Zofran by EMS but stated that he has been having to force feed himself on the last several days because of this. The patient denied any other acute pain or complaints at this time. - Related Data Previous Rx's Medication Instructions Recorded Metoprolol Tartrate [Lopressor] 25 mg PO BID #180 tab 03/06/23 hydroCHLOROthiazide [Hydrodiuril] 25 mg PO DAILY #90 tab 03/06/23 Aspirin 81 mg PO DAILY 90 Days #90 tab 03/07/23 Budesonide-Formot 160-4.5 Mcg 2 puff INHALATION RT-BID 30 Days 03/07/23 [Symbicort 160-4.5 Mcg Inhaler] #1 each Thiamine [Vitamin B-1] 100 mg PO DAILY 30 Days #30 tab 03/07/23 busPIRone HCl [Buspar] 5 mg PO BID 30 Days #60 tab 03/07/23 lamoTRIgine [LaMICtal] 100 mg PO BID 30 Days #60 tab 03/07/23 lisinopriL [Zestril] 5 mg PO BID 90 Days #180 tab 03/07/23 Ondansetron Odt [Zofran Odt] 4 mg PO Q8HR PRN #20 tab 03/10/23 Allergies Allergy/AdvReac Type Severity Reaction Status Date / Time No Known Allergies Allergy Verified 03/05/23 07:00 Review of Systems ROS Statement: Those systems with pertinent positive or pertinent negative responses have been documented in the HPI. ROS Other: All systems not noted in ROS Statement are negative. Past Medical History Past Medical History: CVA/TIA, Hypertension Additional Past Medical History / Comment(s): right arm weakness from CVA February 2022 History of Any Multi-Drug Resistant Organisms: None Reported Past Surgical History: No Surgical Hx Reported Past Anesthesia/Blood Transfusion Reactions: No Reported Reaction Past Psychological History: No Psychological Hx Reported Smoking Status: Current every day smoker Past Alcohol Use History: Daily Past Drug Use History: None Reported - Past Family History Mother Family Medical History: Diabetes Mellitus, Hypertension Father Family Medical History: Diabetes Mellitus, Hypertension General Exam Limitations: no limitations General appearance: alert, in no apparent distress Head exam: Present: atraumatic, normocephalic, normal inspection Eye exam: Present: normal appearance, PERRL Pupils: Present: normal accommodation ENT exam: Present: normal exam, normal oropharynx, mucous membranes moist Neck exam: Present: normal inspection, full ROM Respiratory exam: Present: normal lung sounds bilaterally Cardiovascular Exam: Present: regular rate, normal rhythm, normal heart sounds GI/Abdominal exam: Present: soft, normal bowel sounds Extremities exam: Present: normal inspection, full ROM Back exam: Present: normal inspection, full ROM Neurological exam: Present: alert, oriented X3, CN II-XII intact Psychiatric exam: Present: normal affect, normal mood Skin exam: Present: warm, dry Course Vital Signs 03/10/23 03/10/23 02:51 04:00 Temperature 98.1 F Pulse Rate 77 65 Respiratory 16 18 Rate Blood Pressure 128/76 121/83 O2 Sat by Pulse 99 99 Oximetry EKG Findings - EKG Comments: EKG Findings:: An EKG was obtained and was interpreted by myself showing a rate of 74, MA interval 181, QRS duration 98 and QTC of 429. This EKG showed a normal sinus rhythm with no ST segment elevation or depression noted. Medical Decision Making - Medical Decision Making Was pt. sent in by a medical professional or institution (, PA, EEG TECHNICIAN, urgent care, hospital, or assisted...) When possible be specific @ -No Did you speak to anyone other than the patient for history (EMS, parent, family, police, friend...)? What history was obtained from this source @ -No Did you review nursing and triage notes (agree or disagree)? Why? @ -I reviewed and agree with nursing and triage notes Were old charts reviewed (outside hosp., previous admission, EMS record, old EKG, old radiological studies, urgent care reports/EKG's, assisted records)? Report findings @ -No old charts were reviewed Differential Diagnosis (chest pain, altered mental status, abdominal pain women, abdominal pain men, vaginal bleeding, weakness, fever, dyspnea, syncope, headache, dizziness, GI bleed, back pain, seizure, CVA, palpatations, mental health)? @ -Dehydration, orthostatic hypotension, medication reaction, ACS EKG interpreted by me (3pts min.). @ -As above X-rays interpreted by me (1pt min.). @ -Chest x-ray was obtained and was interpreted by myself showing no acute process. CT interpreted by me (1pt min.). @ -None done U/S interpreted by me (1pt. min.). @ -None done What testing was considered but not performed or refused? (CT, X-rays, U/S, labs)? Why? @ -None What meds were considered but not given or refused? Why? @ -None Did you discuss the management of the patient with other professionals (professionals i.e. , PA, EEG TECHNICIAN, lab, RT, psych nurse, psychosocial rehabilitation counselor, parts clerk plant maintenance, teacher, associate loan officer, continuous pillowcase cutter)? Give summary @ -No Was smoking cessation discussed for >3mins.? @ -No Was critical care preformed (if so, how long)? @ -No Were there social determinants of health that impacted care today? How? (Homelessness, low income, unemployed, alcoholism, drug addiction, transportation, low edu. Level, literacy, decrease access to med. care, intermediate, rehab)? @ -No Was there de-escalation of care discussed even if they declined (Discuss DNR or withdrawal of care, Hospice)? DNR status @ -No What co-morbidities impacted this encounter? (DM, HTN, Smoking, COPD, CAD, Cancer, CVA, ARF, Chemo, Hep., AIDS, mental health diagnosis, sleep apnea, morbid obesity)? @ -Diabetes, hypertension, recent cardiac catheterization, previous pericardial window Was patient admitted / discharged? Hospital course, mention meds given and route, prescriptions, significant lab abnormalities, going to OR and other pertinent info. @ -The patient was seen and evaluated emergency department. Physical exam, the patient was resting in bed without any acute distress. The patient's vital sig ns were within normal limits and the patient did complain of minor lightheadedness while resting. The patient did admit to having decreased by mouth intake over the last several days. The patient had been given a Zofran by EMS on arrival and stated that his symptoms were improved. Laboratory workup was within normal limits and the patient's troponin was elevated 0.05 however consistent with the patient's recent cardiac catheterization 2 days prior. The patient's other laboratory workup was at baseline and the patient did receive 1 L of normal saline fluid. On reevaluation, the patient stated that his symptoms had completely resolved and he was no longer having any lightheadedness or diz ziness. The patient denied any other acute pain or complaints and was stable for discharge home. The patient's symptoms was likely a result of not having enough oral intake and the patient will be given a prescription for Zofran to be taken at home. The patient was advised to report back to the emergency department. Worsening symptoms and to follow-up with his switch tender and primary care physician. The patient was agreeable to this and all his questions were answered. The patient was discharged home in stable condition. Undiagnosed new problem with uncertain prognosis? @ -No Drug Therapy requiring intensive monitoring for toxicity (Heparin, Nitro, Insulin, Cardizem)? @ -No Were any procedures done? @ -No Diagnosis/symptom? @ -Mild dizziness likely secondary to dehydration, resolved Acute, or Chronic, or Acute on Chronic? @ -Acute Uncomplicated (without systemic symptoms) or Complicated (systemic symptoms)? @ -Uncomplicated Side effects of treatment? @ -No Exacerbation, Progression, or Severe Exacerbation? @ -No Poses a threat to life or bodily function? How? (Chest pain, [place], [place], pneumonia, PE, COPD, DKA, ARF, appy, cholecystitis, CVA, Diverticulitis, Homicidal, Suicidal, threat to staff... and all critical care pts) @ -No - Lab Data Result diagrams: 03/10/23 02:55 03/10/23 02:55 Lab Results 03/10/23 03/10/23 03/10/23 Range/Units 02:55 02:55 02:55 WBC 2.4 L (3.8-10.6) k/uL RBC 3.97 L (4.30-5.90) m/uL Hgb 12.8 L (13.0-17.5) gm/dL Hct 37.0 L (39.0-53.0) % MCV 93.0 (80.0-100.0) fL MCH 32.3 (25.0-35.0) pg MCHC 34.7 (31.0-37.0) g/dL RDW 14.4 (11.5-15.5) % Plt Count 103 L (150-450) k/uL MPV 10.7 Neutrophils % 48 % Lymphocytes % 33 % Monocytes % 14 % Eosinophils % 2 % Basophils % 0 % Neutrophils # 1.2 L (1.3-7.7) k/uL Lymphocytes # 0.8 L (1.0-4.8) k/uL Monocytes # 0.3 (0-1.0) k/uL Eosinophils # 0.1 (0-0.7) k/uL Basophils # 0.0 (0-0.2) k/uL PT 11.0 (9.0-12.0) sec INR 1.1 (<1.2) APTT 23.8 (22.0-30.0) sec Sodium 138 (137-145) mmol/L Potassium 5.2 H (3.5-5.1) mmol/L Chloride 105 (98-107) mmol/L Carbon Dioxide 26 (22-30) mmol/L Anion Gap 7 mmol/L BUN 14 (9-20) mg/dL Creatinine 0.61 L (0.66-1.25) mg/dL Est GFR (CKD-EPI)AfAm >90 (>60 ml/min/1.73 sqM) Est GFR (CKD-EPI)NonAf >90 (>60 ml/min/1.73 sqM) Glucose 122 H (74-99) mg/dL Calcium 8.8 (8.4-10.2) mg/dL Magnesium 1.6 (1.6-2.3) mg/dL Total Bilirubin 1.7 H (0.2-1.3) mg/dL AST 198 H (17-59) U/L ALT 132 H (4-49) U/L Alkaline Phosphatase 70 (38-126) U/L Troponin I (0.000-0.034) ng/mL NT-Pro-B Natriuret Pep pg/mL Total Protein 8.0 (6.3-8.2) g/dL Albumin 4.3 (3.5-5.0) g/dL Lipase 76 (23-300) U/L 03/10/23 03/10/23 Range/Units 02:55 02:55 WBC (3.8-10.6) k/uL RBC (4.30-5.90) m/uL Hgb (13.0-17.5) gm/dL Hct (39.0-53.0) % MCV (80.0-100.0) fL MCH (25.0-35.0) pg MCHC (31.0-37.0) g/dL RDW (11.5-15.5) % Plt Count (150-450) k/uL MPV Neutrophils % % Lymphocytes % % Monocytes % % Eosinophils % % Basophils % % Neutrophils # (1.3-7.7) k/uL Lymphocytes # (1.0-4.8) k/uL Monocytes # (0-1.0) k/uL Eosinophils # (0-0.7) k/uL Basophils # (0-0.2) k/uL PT (9.0-12.0) sec INR (<1.2) APTT (22.0-30.0) sec Sodium (137-145) mmol/L Potassium (3.5-5.1) mmol/L Chloride (98-107) mmol/L Carbon Dioxide (22-30) mmol/L Anion Gap mmol/L BUN (9-20) mg/dL Creatinine (0.66-1.25) mg/dL Est GFR (CKD-EPI)AfAm (>60 ml/min/1.73 sqM) Est GFR (CKD-EPI)NonAf (>60 ml/min/1.73 sqM) Glucose (74-99) mg/dL Calcium (8.4-10.2) mg/dL Magnesium (1.6-2.3) mg/dL Total Bilirubin (0.2-1.3) mg/dL AST (17-59) U/L ALT (4-49) U/L Alkaline Phosphatase (38-126) U/L Troponin I 0.050 H* (0.000-0.034) ng/mL NT-Pro-B Natriuret Pep 131 pg/mL Total Protein (6.3-8.2) g/dL Albumin (3.5-5.0) g/dL Lipase (23-300) U/L Disposition Clinical Impression: Dehydration Disposition: HOME SELF-CARE Condition: Stable Instructions (If sedation given, give patient instructions): Dehydration (DC) Prescriptions: Ondansetron Odt [Zofran Odt] 4 mg PO Q8HR PRN #20 tab PRN Reason: Nausea Is patient prescribed a controlled substance at d/c from ED?: No Referrals: None,Stated [Primary Care Provider] - 1-2 days Time of Disposition: 04:30
[2023-03-10 03:23] LABS: ALT 132 U/L (4-49); AST 198 U/L (17-59); African American GFR (CKD) >90 (>60 ml/min/1.73 sqM); Albumin 4.3 g/dL (3.5-5.0); Alkaline Phosphatase 70 U/L (38-126); Anion Gap 7 mmol/L; Blood Urea Nitrogen 14 mg/dL (9-20); Calcium 8.8 mg/dL (8.4-10.2); Carbon Dioxide 26 mmol/L (22-30); Chloride 105 mmol/L (98-107); Glucose 122 mg/dL (74-99); Lipase 76 U/L (23-300); Magnesium 1.6 mg/dL (1.6-2.3); Non-African American GFR(CKD) >90 (>60 ml/min/1.73 sqM); Sodium 138 mmol/L (137-145); Total Bilirubin 1.7 mg/dL (0.2-1.3)
[2023-03-10] MEDS ORDERED: hydrOXYzine HCL 25 MG TAB PO STA (03:24)
[2023-03-10 03:25] LABS: Basophils % (A) 0 %; Eosinophils # (A) 0.1 k/uL (0-0.7); Eosinophils % (A) 2 %; HGB 12.8 gm/dL (13.0-17.5); Lymphocytes # (A) 0.8 k/uL (1.0-4.8); Lymphocytes % (A) 33 %; MCH 32.3 pg (25.0-35.0); MCHC 34.7 g/dL (31.0-37.0); Mean Platelet Volume 10.7; Monocytes # (A) 0.3 k/uL (0-1.0); Monocytes % (A) 14 %; Neutrophils # (A) 1.2 k/uL (1.3-7.7); Neutrophils % (A) 48 %; Platelet Count 103 k/uL (150-450); RBC 3.97 m/uL (4.30-5.90); RDW 14.4 % (11.5-15.5); WBC 2.4 k/uL (3.8-10.6)
[2023-03-10 03:44] LABS: INR 1.1 (<1.2); Partial Thromboplastin Time 23.8 sec (22.0-30.0)
[2023-03-10 03:59] LABS: Potassium 5.2 mmol/L (3.5-5.1)
[2023-03-10 04:36] VITALS: BP 121/83; PULSE 65; RESP 18
--- NOTE | 2023-03-10 04:47 | XR ---
EXAMINATION TYPE: XR chest 2V DATE OF EXAM: 03/10/2023 COMPARISON: Chest x-ray March 04, 2023. CTA chest March 05, 2023 HISTORY: Chest pain. TECHNIQUE: Frontal and lateral views of the chest are obtained. FINDINGS: There is no suspicious new focal air space opacity, pleural effusion, or pneumothorax seen . The cardiac silhouette size is stable and within normal limits. The osseous structures are intac t. Overlying EKG leads are redemonstrated. IMPRESSION: No acute process. No significant change from recent prior studies.
== END 2023-03-10 05:00 | disposition home or self-care (01) ==
LOC: EC 02:43
DX: E86.0 Dehydration (principal); I10 Essential (primary) hypertension; E11.9 Type 2 diabetes mellitus without complications; F17.200 Nicotine dependence, unspecified, uncomplicated
CPT/HCPCS: 36415; 71046; 80053; 83690; 83735; 83880; 84484; 85025; 85610; 85730; 93005; 96360; 99285

== ENCOUNTER 2023-04-04 19:41 | Emergency (ER) | payer OTHER ==
[2023-04-04 19:54] VITALS: TEMP 98.1
[2023-04-04] MEDS ORDERED: SODIUM CHLORIDE 0.9% 1,000 ML IV ONE ×2 (19:56→21:14)
--- NOTE | 2023-04-04 20:42 | ED ---
General Adult HPI - General Chief complaint: Recheck/Abnormal Lab/Rx Stated complaint: Weakness Time Seen by Provider: 04/04/23 21:08 Source: patient, RN notes reviewed Mode of arrival: EMS Limitations: no limitations - History of Present Illness Initial comments: 32 -[place] male with a past medical history significant for CVA presents to the emergency department via EMS with possible seizure. He shouldn't reports that he was at work when he reports he had a loss of consciousness that lasted approximately 6 minutes. He denies hitting his head. He reports that he has been compliant with his seizure medications. He denies any loss of bowel or bladder function. He denies any dizziness, lightheaded, vision loss, vision changes, headache, cough, congestion, chest pain, shortness of breath, nausea, vomiting, diarrhea, melena, hematochezia. He does have right-sided weakness however this is not new and a subsequent of his stroke. - Related Data Home Medications Medication Instructions Recorded Confirmed amLODIPine [Norvasc] 5 mg PO BID 04/04/23 04/05/23 Previous Rx's Medication Instructions Recorded Metoprolol Tartrate [Lopressor] 25 mg PO BID #180 tab 03/06/23 hydroCHLOROthiazide [Hydrodiuril] 25 mg PO DAILY #90 tab 03/06/23 Aspirin 81 mg PO DAILY 90 Days #90 tab 03/07/23 Budesonide-Formot 160-4.5 Mcg 2 puff INHALATION RT-BID 30 Days 03/07/23 [Symbicort 160-4.5 Mcg Inhaler] #1 each Thiamine [Vitamin B-1] 100 mg PO DAILY 30 Days #30 tab 03/07/23 busPIRone HCl [Buspar] 5 mg PO BID 30 Days #60 tab 03/07/23 lamoTRIgine [LaMICtal] 100 mg PO BID 30 Days #60 tab 03/07/23 Allergies Allergy/AdvReac Type Severity Reaction Status Date / Time No Known Allergies Allergy Verified 04/05/23 10:58 Review of Systems ROS Statement: Those systems with pertinent positive or pertinent negative responses have been documented in the HPI. ROS Other: All systems not noted in ROS Statement are negative. Past Medical History Past Medical History: Atrial Fibrillation, CVA/TIA, Hypertension Additional Past Medical History / Comment(s): right arm weakness from CVA February 2022 History of Any Multi-Drug Resistant Organisms: None Reported Past Surgical History: No Surgical Hx Reported Additional Past Surgical History / Comment(s): pericardial window Past Anesthesia/Blood Transfusion Reactions: No Reported Reaction Past Psychological History: No Psychological Hx Reported Smoking Status: Current every day smoker Past Alcohol Use History: Daily Past Drug Use History: None Reported - Past Family History Mother Family Medical History: Diabetes Mellitus, Hypertension Father Family Medical History: Diabetes Mellitus, Hypertension General Exam - General Exam Comments Initial Comments: General: Alert, in no acute distress Head: atraumatic normocephalic. Eyes PERRL, EOMI intact, mucous membranes moist Respiratory: Lungs clear to auscultation bilaterally Cardiovascular: Heart rate regular rate and rhythm Abdominal: Soft without guarding or rebound Extremities: Normal inspection with full range of motion and normal capillary refill, right leg and right arm with limited range of motion and 3/5 strength te sting Neuroogic: alert and oriented 3, CN II-XII intact, able to ambulate with steady gait Skin: warm dry and intact with normal color Limitations: no limitations Course Vital Signs 04/04/23 04/04/23 04/04/23 19:43 19:45 20:00 Temperature 98.1 F Pulse Rate 85 89 Respiratory 16 16 Rate Blood Pressure 128/78 128/78 128/78 O2 Sat by Pulse 98 100 Oximetry 04/04/23 04/04/23 04/04/23 21:00 22:00 23:00 Temperature Pulse Rate 91 85 89 Respiratory 16 18 16 Rate Blood Pressure 128/89 136/98 154/107 O2 Sat by Pulse 100 98 98 Oximetry 04/05/23 04/05/23 00:00 02:04 Temperature Pulse Rate 78 84 Respiratory 20 16 Rate Blood Pressure 143/92 134/78 O2 Sat by Pulse 99 99 Oximetry - Reevaluation(s) Reevaluation #1: 04/04/23 21:13 Notified of critical result: lactic 2.6. Reevaluation #2: 04/04/23 21:48 Pt reevaluated. Patient is reporting of cough. Robitussin ordered. Patient in no acute distress. Patient is alert and oriented. Reevaluation #3: 04/05/23 01:18 patient reevaluated. Patient aware awaiting lactic acid results. Patient offered admission however he declined at this time. Patient verbalizes that he would like to be discharged home. EKG Findings - EKG Comments: EKG Findings:: I interpreted the following: EKG performed at 20:12 82 bpm normal sinus rhythm. VA interval 180, QRS duration 97, QT/QTc 417/455 Medical Decision Making - Medical Decision Making Was pt. sent in by a medical professional or institution (, BRET, TREATING AND PUMPING SUPERVISOR, urgent care, hospital, or [facility]...) When possible be specific @ -[No] Did you speak to anyone other than the patient for history (EMS, parent, family, police, friend...)? What history was obtained from this source @ -[No] Did you review nursing and triage notes (agree or disagree)? Why? @ -[I reviewed and agree with nursing and triage notes] Were old charts reviewed (outside hosp., previous admission, EMS record, old EKG, old radiological studies, urgent care reports/EKG's, [facility] records)? Report findings @ -[No old charts were reviewed] Differential Diagnosis (chest pain, altered mental status, abdominal pain women, abdominal pain men, vaginal bleeding, weakness, fever, dyspnea, syncope, headache, dizziness, GI bleed, back pain, seizure, CVA, palpatations, mental health, musculoskeletal)? @ -[not applicable] EKG interpreted by me (3pts min.). @ -[As above] X-rays interpreted by me (1pt min.). @ -[None done] CT interpreted by me (1pt min.). @ -[None done] U/S interpreted by me (1pt. min.). @ -[None done] What testing was considered but not performed or refused? (CT, X-rays, U/S, labs)? Why? @ -[None] What meds were considered but not given or refused? Why? @ -[None] Did you discuss the management of the patient with other professionals (professionals i.e. BRET Tavarez, TREATING AND PUMPING SUPERVISOR, lab, RT, psych nurse, social sciences instructor, bioprocess development engineer, teacher, nursing officer, correctional counselor/case manager)? Give summary @ -[No] Was smoking cessation discussed for >3mins.? @ -[No] Was critical care preformed (if so, how long)? @ -[No] Were there social determinants of health that impacted care today? How? (Homelessness, low income, unemployed, alcoholism, drug addiction, transportation, low edu. Level, literacy, decrease access to med. care, nursing home, rehab)? @ -[No] Was there de-escalation of care discussed even if they declined (Discuss DNR or withdrawal of care, Hospice)? DNR status @ -[No] What co-morbidities impacted this encounter? (DM, HTN, Smoking, COPD, CAD, Cancer, CVA, ARF, Chemo, Hep., AIDS, mental health diagnosis, sleep apnea, morbid obesity)? @ -[None] Was patient admitted / discharged? Hospital course, mention meds given and route, prescriptions, significant lab abnormalities, going to OR and other pertinent info. @ -Discharged. This is a 33-year-old -[place] male who presents the emergency department with possible seizure. Patient had a thorough history and physical exam performed on the ED. Physical exam reveals heart rate regular rate and rhythm, lungs clear to auscultation bilaterally abdomen is soft and nontender. There are no focal neuro deficits noted on exam. Patient remains to be seizure free while in the emergency department. Patient had lab work performed which revealed: WBCs 12.0, hemoglobin 10.5 platelets 46 APTT 32.5 sodium 142, potassium 3.1 BUN 20, creatinine 1.15 glucose 61 initial lactic acid 2.6, repeat lactic 1.0 magnesium 1.3 AST 178, ALT 91 initial troponin 0.012, Serum alcohol is 49 I discussed the results in detail the patient verbalized understanding and all questions were addressed. He was given 2 L IV fluids and IV 40 mEq of oral potassium. He was strongly encouraged to stay in the hospital and be admitted for electrolyte replenishment and observation. Patient verbalized that he would like to be discharged home. He was aware of the risks including as he was leaving against medical recommendation to be admitted. Patient was discharged in stable condition. Return precautions were discussed at length. Case discussed with KRISTEN Velazco who agrees with plan of care. Undiagnosed new problem with uncertain prognosis? @ -[No] Drug Therapy requiring intensive monitoring for toxicity (Heparin, Nitro, Insulin, Cardizem)? @ -[No] Were any procedures done? @ -[No] Diagnosis/symptom? @ - Syncope - Hypomagnesemia - Pancytopenia - Transaminitis Acute, or Chronic, or Acute on Chronic? @ - acute Uncomplicated (without systemic symptoms) or Complicated (systemic symptoms)? @ -uncomplicated Side effects of treatment? @ -[No] Exacerbation, Progression, or Severe Exacerbation? @ -[No] Poses a threat to life or bodily function? How? (Chest pain, USA, [place], pneumonia, PE, COPD, DKA, ARF, appy, cholecystitis, CVA, Diverticulitis, Homicidal, Suicidal, threat to staff... and all critical care pts) @ -moderate likelihood - Lab Data Result diagrams: 04/04/23 20:15 04/04/23 20:15 Lab Results 04/04/23 04/04/23 04/04/23 Range/Units 20:15 20:15 20:15 WBC 2.0 L (3.8-10.6) k/uL RBC 3.36 L (4.30-5.90) m/uL Hgb 10.5 L (13.0-17.5) gm/dL Hct 29.8 L (39.0-53.0) % MCV 88.7 (80.0-100.0) fL MCH 31.3 (25.0-35.0) pg MCHC 35.3 (31.0-37.0) g/dL RDW 14.9 (11.5-15.5) % Plt Count 46 L D (150-450) k/uL MPV 10.7 Neutrophils % 51 % Lymphocytes % 34 % Monocytes % 11 % Eosinophils % 1 % Basophils % 0 % Neutrophils # 1.0 L (1.3-7.7) k/uL Lymphocytes # 0.7 L (1.0-4.8) k/uL Monocytes # 0.2 (0-1.0) k/uL Eosinophils # 0.0 (0-0.7) k/uL Basophils # 0.0 (0-0.2) k/uL Manual Slide Review Performed PT 11.0 (9.0-12.0) sec INR 1.0 (<1.2) APTT 18.5 L (22.0-30.0) sec Sodium 142 (137-145) mmol/L Potassium 3.1 L (3.5-5.1) mmol/L Chloride 103 (98-107) mmol/L Carbon Dioxide 27 (22-30) mmol/L Anion Gap 12 mmol/L BUN 20 (9-20) mg/dL Creatinine 1.15 (0.66-1.25) mg/dL Est GFR (CKD-EPI)AfAm >90 (>60 ml/min/1.73 sqM) Est GFR (CKD-EPI)NonAf 85 (>60 ml/min/1.73 sqM) Glucose 61 L (74-99) mg/dL Lactic Ac Sepsis Rflx Plasma Lactic Acid Angel (0.7-2.0) mmol/L Calcium 8.4 (8.4-10.2) mg/dL Magnesium (1.6-2.3) mg/dL Total Bilirubin 0.6 (0.2-1.3) mg/dL AST 170 H (17-59) U/L ALT 91 H (4-49) U/L Alkaline Phosphatase 121 (38-126) U/L Ammonia (<30) umol/L Troponin I (0.000-0.034) ng/mL Total Protein 7.4 (6.3-8.2) g/dL Albumin 4.1 (3.5-5.0) g/dL Urine Color Urine Appearance (Clear) Urine pH (5.0-8.0) Ur Specific Cutler (1.001-1.035) Urine Protein (Negative) Urine Glucose (UA) (Negative) Urine Ketones (Negative) Urine Blood (Negative) Urine Nitrite (Negative) Urine Bilirubin (Negative) Urine Urobilinogen (<2.0) mg/dL Ur Leukocyte Esterase (Negative) Urine RBC (0-5) /hpf Urine WBC (0-5) /hpf Urine Bacteria (None) /hpf Hyaline Casts (0-2) /lpf Granular Casts (0) /lpf Urine Mucus (None) /hpf Serum Alcohol 49 mg/dL 04/04/23 04/04/23 04/04/23 Range/Units 20:15 20:15 20:15 WBC (3.8-10.6) k/uL RBC (4.30-5.90) m/uL Hgb (13.0-17.5) gm/dL Hct (39.0-53.0) % MCV (80.0-100.0) fL MCH (25.0-35.0) pg MCHC (31.0-37.0) g/dL RDW (11.5-15.5) % Plt Count (150-450) k/uL MPV Neutrophils % % Lymphocytes % % Monocytes % % Eosinophils % % Basophils % % Neutrophils # (1.3-7.7) k/uL Lymphocytes # (1.0-4.8) k/uL Monocytes # (0-1.0) k/uL Eosinophils # (0-0.7) k/uL Basophils # (0-0.2) k/uL Manual Slide Review PT (9.0-12.0) sec INR (<1.2) APTT (22.0-30.0) sec Sodium (137-145) mmol/L Potassium (3.5-5.1) mmol/L Chloride (98-107) mmol/L Carbon Dioxide (22-30) mmol/L Anion Gap mmol/L BUN (9-20) mg/dL Creatinine (0.66-1.25) mg/dL Est GFR (CKD-EPI)AfAm (>60 ml/min/1.73 sqM) Est GFR (CKD-EPI)NonAf (>60 ml/min/1.73 sqM) Glucose (74-99) mg/dL Lactic Ac Sepsis Rflx Plasma Lactic Acid Angel 2.6 H* (0.7-2.0) mmol/L Calcium (8.4-10.2) mg/dL Magnesium 1.3 L (1.6-2.3) mg/dL Total Bilirubin (0.2-1.3) mg/dL AST (17-59) U/L ALT (4-49) U/L Alkaline Phosphatase (38-126) U/L Ammonia 10 (<30) umol/L Troponin I <0.012 (0.000-0.034) ng/mL Total Protein (6.3-8.2) g/dL Albumin (3.5-5.0) g/dL Urine Color Urine Appearance (Clear) Urine pH (5.0-8.0) Ur Specific Cutler (1.001-1.035) Urine Protein (Negative) Urine Glucose (UA) (Negative) Urine Ketones (Negative) Urine Blood (Negative) Urine Nitrite (Negative) Urine Bilirubin (Negative) Urine Urobilinogen (<2.0) mg/dL Ur Leukocyte Esterase (Negative) Urine RBC (0-5) /hpf Urine WBC (0-5) /hpf Urine Bacteria (None) /hpf Hyaline Casts (0-2) /lpf Granular Casts (0) /lpf Urine Mucus (None) /hpf Serum Alcohol mg/dL 04/04/23 04/04/23 04/05/23 Range/Units 20:58 21:07 01:19 WBC (3.8-10.6) k/uL RBC (4.30-5.90) m/uL Hgb (13.0-17.5) gm/dL Hct (39.0-53.0) % MCV (80.0-100.0) fL MCH (25.0-35.0) pg MCHC (31.0-37.0) g/dL RDW (11.5-15.5) % Plt Count (150-450) k/uL MPV Neutrophils % % Lymphocytes % % Monocytes % % Eosinophils % % Basophils % % Neutrophils # (1.3-7.7) k/uL Lymphocytes # (1.0-4.8) k/uL Monocytes # (0-1.0) k/uL Eosinophils # (0-0.7) k/uL Basophils # (0-0.2) k/uL Manual Slide Review PT (9.0-12.0) sec INR (<1.2) APTT (22.0-30.0) sec Sodium (137-145) mmol/L Potassium (3.5-5.1) mmol/L Chloride (98-107) mmol/L Carbon Dioxide (22-30) mmol/L Anion Gap mmol/L BUN (9-20) mg/dL Creatinine (0.66-1.25) mg/dL Est GFR (CKD-EPI)AfAm (>60 ml/min/1.73 sqM) Est GFR (CKD-EPI)NonAf (>60 ml/min/1.73 sqM) Glucose (74-99) mg/dL Lactic Ac Sepsis Rflx Y Plasma Lactic Acid Angel 1.0 (0.7-2.0) mmol/L Calcium (8.4-10.2) mg/dL Magnesium (1.6-2.3) mg/dL Total Bilirubin (0.2-1.3) mg/dL AST (17-59) U/L ALT (4-49) U/L Alkaline Phosphatase (38-126) U/L Ammonia (<30) umol/L Troponin I (0.000-0.034) ng/mL Total Protein (6.3-8.2) g/dL Albumin (3.5-5.0) g/dL Urine Color Yellow Urine Appearance Clear (Clear) Urine pH 5.5 (5.0-8.0) Ur Specific Cutler 1.018 (1.001-1.035) Urine Protein 2+ H (Negative) Urine Glucose (UA) Negative (Negative) Urine Ketones Negative (Negative) Urine Blood Trace H (Negative) Urine Nitrite Negative (Negative) Urine Bilirubin Negative (Negative) Urine Urobilinogen 2.0 (<2.0) mg/dL Ur Leukocyte Esterase Negative (Negative) Urine RBC 2 (0-5) /hpf Urine WBC 3 (0-5) /hpf Urine Bacteria Rare H (None) /hpf Hyaline Casts 35 H (0-2) /lpf Granular Casts 12 (0) /lpf Urine Mucus Rare H (None) /hpf Serum Alcohol mg/dL Disposition Clinical Impression: Syncope, Hypomagnesemia, Pancytopenia, Transaminitis Disposition: HOME SELF-CARE Condition: Stable Is patient prescribed a controlled substance at d/c from ED?: No Referrals: None,Stated [Primary Care Provider] - 1-2 days Time of Disposition: 01:18
[2023-04-04 20:52] LABS: ALT 91 U/L (4-49); AST 170 U/L (17-59); African American GFR (CKD) >90 (>60 ml/min/1.73 sqM); Albumin 4.1 g/dL (3.5-5.0); Alcohol 49 mg/dL; Alkaline Phosphatase 121 U/L (38-126); Anion Gap 12 mmol/L; Blood Urea Nitrogen 20 mg/dL (9-20); Calcium 8.4 mg/dL (8.4-10.2); Carbon Dioxide 27 mmol/L (22-30); Chloride 103 mmol/L (98-107); Glucose 61 mg/dL (74-99); Non-African American GFR(CKD) 85 (>60 ml/min/1.73 sqM); Potassium 3.1 mmol/L (3.5-5.1); Sodium 142 mmol/L (137-145); Total Bilirubin 0.6 mg/dL (0.2-1.3); Total Protein 7.4 g/dL (6.3-8.2)
[2023-04-04] MEDS ORDERED: BENZONATATE 100 MG CAP PO STA (20:54)
[2023-04-04] MEDS ORDERED: guaiFENesin SYRUP 100MG/5ML 200 MG/10 ML CUP PO PRN (20:56)
[2023-04-04 21:07] LABS: Lactic Acid, Venous 2.6 mmol/L (0.7-2.0)
[2023-04-04 21:10] LABS: Partial Thromboplastin Time 18.5 sec (22.0-30.0)
[2023-04-04 21:13] LABS: Appearance,Urine Clear (Clear); Bacteria,Urine Rare /hpf; Bilirubin,Urine Negative (Negative); Blood,Urine Trace (Negative); Color,Urine Yellow; Glucose,Urine (UA) Negative (Negative); Granular Casts,Urine 12 /lpf (0); Hyaline Casts,Urine 35 /lpf (0-2); Ketones,Urine Negative (Negative); Leukocyte Esterase,Urine Negative (Negative); Mucus,Urine Rare /hpf; Nitrite,Urine Negative (Negative); PH, Urine 5.5 (5.0-8.0); Protein,Urine 2+ (Negative); RBC,Urine 2 /hpf (0-5); Specific Gravity,Urine 1.018 (1.001-1.035); WBC,Urine 3 /hpf (0-5)
[2023-04-04 21:14] LABS: Basophils % (A) 0 %; Eosinophils % (A) 1 %; HCT 29.8 % (39.0-53.0); HGB 10.5 gm/dL (13.0-17.5); Lymphocytes # (A) 0.7 k/uL (1.0-4.8); Lymphocytes % (A) 34 %; MCH 31.3 pg (25.0-35.0); MCHC 35.3 g/dL (31.0-37.0); MCV 88.7 fL (80.0-100.0); Mean Platelet Volume 10.7; Monocytes # (A) 0.2 k/uL (0-1.0); Monocytes % (A) 11 %; Neutrophils % (A) 51 %; RBC 3.36 m/uL (4.30-5.90); RDW 14.9 % (11.5-15.5)
[2023-04-04 21:27] LABS: Platelet Count 46 k/uL (150-450)
[2023-04-04] MEDS ORDERED: POTASSIUM CHLORIDE ER 20 MEQ TAB.ER PO STA (22:03)
[2023-04-05 02:23] VITALS: BP 134/78; PULSE 84; RESP 16
== END 2023-04-05 02:04 | disposition home or self-care (01) ==
LOC: EC 19:41
DX: R55 Syncope and collapse (principal); E83.42 Hypomagnesemia; D61.818 Other pancytopenia; R74.01 Elevation of levels of liver transaminase levels; I10 Essential (primary) hypertension; I48.91 Unspecified atrial fibrillation; F17.200 Nicotine dependence, unspecified, uncomplicated; Z79.899 Other long term (current) drug therapy
CPT/HCPCS: 36415; 93005; 80053; 80175; 82140; 83605 ×2; 83735; 84484; 85025; 85610; 85730; 81001; 99285; 96360; 96361; G0480; 80320

== ENCOUNTER 2023-04-05 03:18 | Observation (INO) | payer OTHER ==
--- NOTE | 2023-04-05 04:08 | ED ---
General Adult HPI - General Chief complaint: Extremity Problem,Nontraumatic Stated complaint: Pain in hands and feet Source: patient Mode of arrival: ambulatory Limitations: no limitations - History of Present Illness Initial comments: Patient is a 33-year-old male with past medical history of A. fib, CVA, hypertension, daily alcohol abuse who presents to the emergency department reporting neuropathy in his hands and feet. Patient was just discharged from the hospital. He was here for seizures with a history of seizure disorder. Patient had laboratory studies performed which demonstrated pancytopenia, hypomagnesemia and hypokalemia. It was recommended that the patient be admitted however he wanted to go home. He presents now stating that his neuropathic pain continues and he "just continues to not feel right". He admits to me that he is not taking any of his prescribed medications as he does not have a primary care doctor. He has not taking his antiepileptic or any of his medications for neuropathic pain. He denies that his pain in his hands and feet is any different in characteristic, just uncontrolled as he is not taking any medications. No injuries. No other alleviating, precipitating or modifying factors - Related Data Home Medications Medication Instructions Recorded Confirmed amLODIPine [Norvasc] 5 mg PO BID 04/04/23 04/04/23 lisinopriL [Zestril] 5 mg PO DIRECTED 04/04/23 04/04/23 Previous Rx's Medication Instructions Recorded Metoprolol Tartrate [Lopressor] 25 mg PO BID #180 tab 03/06/23 hydroCHLOROthiazide [Hydrodiuril] 25 mg PO DAILY #90 tab 03/06/23 Aspirin 81 mg PO DAILY 90 Days #90 tab 03/07/23 Budesonide-Formot 160-4.5 Mcg 2 puff INHALATION RT-BID 30 Days 03/07/23 [Symbicort 160-4.5 Mcg Inhaler] #1 each Thiamine [Vitamin B-1] 100 mg PO DAILY 30 Days #30 tab 03/07/23 busPIRone HCl [Buspar] 5 mg PO BID 30 Days #60 tab 03/07/23 lamoTRIgine [LaMICtal] 100 mg PO BID 30 Days #60 tab 03/07/23 Allergies Allergy/AdvReac Type Severity Reaction Status Date / Time No Known Allergies Allergy Verified 04/05/23 03:25 Review of Systems ROS Statement: Those systems with pertinent positive or pertinent negative responses have been documented in the HPI. ROS Other: All systems not noted in ROS Statement are negative. Past Medical History Past Medical History: Atrial Fibrillation, CVA/TIA, Hypertension Additional Past Medical History / Comment(s): right arm weakness from CVA February 2022 History of Any Multi-Drug Resistant Organisms: None Reported Past Surgical History: No Surgical Hx Reported Additional Past Surgical History / Comment(s): pericardial window Past Anesthesia/Blood Transfusion Reactions: No Reported Reaction Past Psychological History: No Psychological Hx Reported Smoking Status: Current every day smoker Past Alcohol Use History: Daily Past Drug Use History: None Reported - Past Family History Mother Family Medical History: Diabetes Mellitus, Hypertension Father Family Medical History: Diabetes Mellitus, Hypertension General Exam Limitations: no limitations Course Vital Signs 04/05/23 03:25 Temperature 98 F Pulse Rate 68 Respiratory 18 Rate Blood Pressure 143/96 O2 Sat by Pulse 98 Oximetry Medical Decision Making - Medical Decision Making Was pt. sent in by a medical professional or institution (, PA, READING SPECIALIST, urgent care, hospital, or [facility]...) When possible be specific @ -[No] Did you speak to anyone other than the patient for history (EMS, parent, family, police, friend...)? What history was obtained from this source @ -[No] Did you review nursing and triage notes (agree or disagree)? Why? @ -[I reviewed and agree with nursing and triage notes] Were old charts reviewed (outside hosp., previous admission, EMS record, old EKG, old radiological studies, urgent care reports/EKG's, [facility] records)? Report findings @ -[No old charts were reviewed] Differential Diagnosis (chest pain, altered mental status, abdominal pain women, abdominal pain men, vaginal bleeding, weakness, fever, dyspnea, syncope, headache, dizziness, GI bleed, back pain, seizure, CVA, palpatations, mental health, musculoskeletal)? @ -[not applicable] EKG interpreted by me (3pts min.). @ -[As above] X-rays interpreted by me (1pt min.). @ -[None done] CT interpreted by me (1pt min.). @ -[None done] U/S interpreted by me (1pt. min.). @ -[None done] What testing was considered but not performed or refused? (CT, X-rays, U/S, labs)? Why? @ -[None] What meds were considered but not given or refused? Why? @ -[None] Did you discuss the management of the patient with other professionals (professionals i.e. , PA, READING SPECIALIST, lab, RT, psych nurse, drug abuse social worker, health club attendant, teacher, job placement officer, special education case manager)? Give summary @ -[No] Was smoking cessation discussed for >3mins.? @ -[No] Was critical care preformed (if so, how long)? @ -[No] Were there social determinants of health that impacted care today? How? (Homelessness, low income, unemployed, alcoholism, drug addiction, transportation, low edu. Level, literacy, decrease access to med. care, retirement, rehab)? @ -[No] Was there de-escalation of care discussed even if they declined (Discuss DNR or withdrawal of care, Hospice)? DNR status @ -[No] What co-morbidities impacted this encounter? (DM, HTN, Smoking, COPD, CAD, Ca ncer, CVA, ARF, Chemo, Hep., AIDS, mental health diagnosis, sleep apnea, morbid obesity)? @ -[None] Was patient admitted / discharged? Hospital course, mention meds given and route, prescriptions, significant lab abnormalities, going to OR and other pertinent info. @ -Arrival patient is placed into room 2. A thorough history and physical exam is performed. I did review the patient's laboratory studies from earlier today. Magnesium is 1.3. Potassium was 3.1 however this was replaced. IV is established and magnesium is replaced. Patient given [place] for pain control. Patient will be admitted for repeat laboratory studies in the morning and to contact pharmacy to determine which medications the patient needs to be on as he is very unaware of his medications. Patient will be placed on CIRI protocol. Pending a bed on the floor Undiagnosed new problem with uncertain prognosis? @ -[No] Drug Therapy requiring intensive monitoring for toxicity (Heparin, Nitro, Insulin, Cardizem)? @ -[No] Were any procedures done? @ -[No] Diagnosis/symptom? @ -[default] Acute, or Chronic, or Acute on Chronic? @ -[default] Uncomplicated (without systemic symptoms) or Complicated (systemic symptoms)? @ -[default] Side effects of treatment? @ -[No] Exacerbation, Progression, or Severe Exacerbation? @ -[No] Poses a threat to life or bodily function? How? (Chest pain, USA, [place], pneumonia, PE, COPD, DKA, ARF, appy, cholecystitis, CVA, Diverticulitis, Homicidal, Suicidal, threat to staff... and all critical care pts) @ -[No] Disposition Clinical Impression: Hypomagnesemia, Alcohol use, Neuropathy, Seizure, Pancytopenia Disposition: ADMITTED IP TO THIS [facility] Condition: Stable Is patient prescribed a controlled substance at d/c from ED?: No Referrals: None,Stated [Primary Care Provider] - 1-2 days Time of Disposition: 04:08 Decision to Admit Reason: Admit from EC Decision Date: 04/05/23 Decision Time: 04:08
[2023-04-05] MEDS ORDERED: NALOXONE 0.4 MG/ML 1 ML VIAL IV PRN (04:10)
[2023-04-05] MEDS ORDERED: LORazepam 0.5 MG TAB PO PRN (04:13)
[2023-04-05] MEDS ORDERED: THIAMINE 100 MG/ML 2 ML VIAL IM STA (04:13)
[2023-04-05] MEDS ORDERED: LORazepam 1 MG TAB PO PRN ×2 (04:13)
[2023-04-05] MEDS ORDERED: HYDROcodone/APAP 7.5-325MG 1 EACH TAB PO ONE (04:15)
[2023-04-05] MEDS: MAGNESIUM SULFATE-D5W PMX 1 GM in DEXTROSE/WATER 1 100ML.BAG IVPB SCH ×2 (04:23→04:24)
[2023-04-05 04:42] LABS: Alcohol <10 mg/dL; Magnesium 1.2 mg/dL (1.6-2.3)
[2023-04-05 04:47] LABS: Basophils % (A) 1 %; Eosinophils # (A) 0.1 k/uL (0-0.7); Eosinophils % (A) 3 %; HCT 30.7 % (39.0-53.0); HGB 10.9 gm/dL (13.0-17.5); Lymphocytes % (A) 39 %; MCH 32.3 pg (25.0-35.0); MCHC 35.6 g/dL (31.0-37.0); MCV 90.8 fL (80.0-100.0); Mean Platelet Volume 9.9; Monocytes # (A) 0.3 k/uL (0-1.0); Monocytes % (A) 11 %; Neutrophils # (A) 1.1 k/uL (1.3-7.7); Neutrophils % (A) 45 %; RBC 3.38 m/uL (4.30-5.90); RDW 14.4 % (11.5-15.5); WBC 2.5 k/uL (3.8-10.6)
[2023-04-05 04:55] LABS: Platelet Count 90 k/uL (150-450)
[2023-04-05] MEDS ORDERED: lisinopriL 5 MG TAB PO SCH (09:00)
[2023-04-05 09:41] LABS: African American GFR (CKD) >90 (>60 ml/min/1.73 sqM); Anion Gap 6 mmol/L; Blood Urea Nitrogen 12 mg/dL (9-20); Carbon Dioxide 28 mmol/L (22-30); Chloride 104 mmol/L (98-107); Glucose 106 mg/dL (74-99); Magnesium 1.6 mg/dL (1.6-2.3); Non-African American GFR(CKD) >90 (>60 ml/min/1.73 sqM); Sodium 138 mmol/L (137-145)
[2023-04-05] MEDS: hydroCHLOROthiazide 25 MG TAB PO SCH (10:11)
[2023-04-05] MEDS: HYDROcodone/APAP 5-325MG 1 EACH TAB PO PRN ×2 (10:12→18:22)
[2023-04-05] MEDS: busPIRone HCl 5 MG TAB PO SCH ×2 (10:12→19:59)
[2023-04-05] MEDS: METOPROLOL TARTRATE 25 MG TAB PO SCH ×2 (10:12→19:58)
[2023-04-05] MEDS: lamoTRIgine 100 MG TAB PO SCH ×2 (10:12→19:58)
[2023-04-05] MEDS: amLODIPine 5 MG TAB PO SCH ×2 (10:12→19:59)
[2023-04-05] MEDS: ASPIRIN 81 MG PO SCH (10:12)
--- NOTE | 2023-04-05 10:26 | CT ---
EXAMINATION TYPE: CT brain wo con DATE OF EXAM: 04/05/2023 COMPARISON: None. HISTORY: Numbness of hands, hx stroke and seizure. CT DLP: 1142.4 mGycm. Automated Exposure Control for Dose Reduction was Utilized. TECHNIQUE: CT scan of the head is performed without contrast. FINDINGS: There is no acute intracranial hemorrhage or midline shift identified. Mild ventricular a nd sulcal prominence. Suspect old lacunar infarct left thalamus axial image 29. Globes are intact and visualized paranasal sinuses are clear. IMPRESSION: Mild diffuse cerebral atrophy with suspected old thalamic lacunar infarct.
[2023-04-05 14:09] LABS: % Iron Saturation 48.91 (15.00-50.00)
[2023-04-05 14:20] LABS: Glucose,Whole Blood 149 mg/dL (70-110)
--- NOTE | 2023-04-05 15:41 | P.HPIM ---
History of Present Illness H&P Date: 04/05/23 History of present illness; patient is a 33-year-old gentleman with past medical history significant for A. fib, CVA, hypertension, noncompliance to the ER because of numbness of his hands and feet. Patient was seen in the ER couple of days ago for possible seizure, at that time patient was told to be admitted for further workup but patient refused. Patient has not been taking any of his medications. Patient complaining of numbness in both hands and feet. States that his burning sensation in his hands up to his wrists and in the lower extremities all the way up to the calf area Denies any slurred speech. There is no complaint of weakness of any extremity. Initial lab work done in the ER showed WBC 2.5, hemoglobin 10.9, sodium 138, potassium 4, chloride 104, carbonate 28, BUN/creatinine 12, creatinine 0.63, magnesium 1.6 Patient was admitted for further evaluation and treatment REVIEW OF SYSTEMS: CONSTITUTIONAL: No fever, no malaise, no fatigue. HEENT: No recent visual problems or hearing problems. Denied any sore throat. CARDIOVASCULAR: No chest pain, orthopnea, PND, no palpitations, no syncope. PULMONARY: No shortness of breath, no cough, no hemoptysis. GASTROINTESTINAL: No diarrhea, no nausea, no vomiting, no abdominal pain. NEUROLOGICAL: No headaches, no weakness, as mentioned in HPI HEMATOLOGICAL: Denies any bleeding or petechiae. GENITOURINARY: Denies any burning micturition, frequency, or urgency. MUSCULOSKELETAL/RHEUMATOLOGICAL: Denies any joint pain, swelling, or any muscle pain. ENDOCRINE: Denies any polyuria or polydipsia. The rest of the 14-point review of systems is negative. PHYSICAL EXAMINATION: GENERAL: The patient is alert and oriented x3, not in any acute distress. Well developed, well nourished. HEENT: Pupils are round and equally reacting to light. EOMI. No scleral icterus. No conjunctival pallor. Normocephalic, atraumatic. No pharyngeal erythema. No thyromegaly. CARDIOVASCULAR: S1 and S2 present. No murmurs, rubs, or gallops. PULMONARY: Chest is clear to auscultation, no wheezing or crackles. ABDOMEN: Soft, nontender, nondistended, normoactive bowel sounds. No palpable organomegaly. MUSCULOSKELETAL: No joint swelling or deformity. EXTREMITIES: No cyanosis, clubbing, or pedal edema. NEUROLOGICAL: Gross neurological examination did not reveal any focal deficits. SKIN: No rashes. Assessment and plan Numbness of hands and feet Seizure disorder Hypertension CVA A. fib Alcohol abuse Hypomagnesemia Plan; monitor vital signs Monitor CBC Monitor CMP Continue neuro checks Check vitamin B12, folic acid, iron profile Order CT brain Continue patient on CIWA protocol Continue thiamine and folic acid Resume home meds Consult neurology DVT prophylaxis: Past Medical History Past Medical History: Atrial Fibrillation, CVA/TIA, Hypertension Additional Past Medical History / Comment(s): right arm weakness from CVA February 2022 History of Any Multi-Drug Resistant Organisms: None Reported Past Surgical History: No Surgical Hx Reported Additional Past Surgical History / Comment(s): pericardial window Past Anesthesia/Blood Transfusion Reactions: No Reported Reaction Past Psychological History: No Psychological Hx Reported Smoking Status: Current every day smoker Past Alcohol Use History: Daily Past Drug Use History: None Reported - Past Family History Mother Family Medical History: Diabetes Mellitus, Hypertension Father Family Medical History: Diabetes Mellitus, Hypertension Medications and Allergies Home Medications Medication Instructions Recorded Confirmed Type Metoprolol Tartrate [Lopressor] 25 mg PO BID #180 tab 03/06/23 04/05/23 Rx hydroCHLOROthiazide [Hydrodiuril] 25 mg PO DAILY #90 tab 03/06/23 04/05/23 Rx Aspirin 81 mg PO DAILY 90 Days #90 tab 03/07/23 04/05/23 Rx Budesonide-Formot 160-4.5 Mcg 2 puff INHALATION RT-BID 30 Days 03/07/23 04/05/23 Rx [Symbicort 160-4.5 Mcg Inhaler] #1 each Thiamine [Vitamin B-1] 100 mg PO DAILY 30 Days #30 tab 03/07/23 04/05/23 Rx busPIRone HCl [Buspar] 5 mg PO BID 30 Days #60 tab 03/07/23 04/05/23 Rx lamoTRIgine [LaMICtal] 100 mg PO BID 30 Days #60 tab 03/07/23 04/05/23 Rx amLODIPine [Norvasc] 5 mg PO BID 04/04/23 04/05/23 History Allergies Allergy/AdvReac Type Severity Reaction Status Date / Time No Known Allergies Allergy Verified 04/05/23 10:58 Physical Exam Vitals: Vital Signs Temp Pulse Resp BP Pulse Ox 04/05/23 08:40 75 16 136/103 98 04/05/23 06:34 146/100 04/05/23 03:25 98 F 68 18 143/96 98 Intake and Output 04/04/23 04/05/23 04/05/23 22:59 06:59 14:59 Other: Weight 68.039 kg Results CBC & Chem 7: 04/05/23 04:10 04/05/23 09:10 Labs: Abnormal Lab Results - Last 24 Hours (Table) 04/05/23 04/05/23 04/05/23 Range/Units 04:10 04:10 09:10 WBC 2.5 L (3.8-10.6) k/uL RBC 3.38 L (4.30-5.90) m/uL Hgb 10.9 L (13.0-17.5) gm/dL Hct 30.7 L (39.0-53.0) % Plt Count 90 L D (150-450) k/uL Neutrophils # 1.1 L (1.3-7.7) k/uL Creatinine 0.63 L (0.66-1.25) mg/dL Glucose 106 H (74-99) mg/dL Calcium 8.0 L (8.4-10.2) mg/dL Magnesium 1.2 L (1.6-2.3) mg/dL
[2023-04-05] MEDS: SYMBICORT 160-4.5 MCG INHALER INHALATION SCH (19:41)
[2023-04-06] MEDS: HYDROcodone/APAP 5-325MG 1 EACH TAB PO PRN ×3 (03:49→17:48)
[2023-04-06] MEDS: LORazepam 1 MG TAB PO PRN ×2 (03:51→23:07)
[2023-04-06] MEDS: METOPROLOL TARTRATE 25 MG TAB PO SCH ×2 (09:07→20:31)
[2023-04-06] MEDS: lamoTRIgine 100 MG TAB PO SCH (09:07)
[2023-04-06] MEDS: hydroCHLOROthiazide 25 MG TAB PO SCH (09:07)
[2023-04-06] MEDS: THIAMINE 100 MG TAB PO SCH (09:07)
[2023-04-06] MEDS: busPIRone HCl 5 MG TAB PO SCH ×2 (09:07→20:31)
[2023-04-06] MEDS: amLODIPine 5 MG TAB PO SCH ×2 (09:07→20:31)
[2023-04-06] MEDS: ASPIRIN 81 MG PO SCH (09:07)
[2023-04-06 09:29] LABS: HCT 30.3 % (39.6-50.0); HGB 10.8 g/dL (13.0-17.0); MCH 31.6 pg (27.0-32.0); MCHC 35.6 g/dL (32.0-37.0); MCV 88.6 fL (80.0-97.0); Mean Platelet Volume 12.3 fL (9.5-12.2); NRBC Per 100 WBC 0 /100 WBCS (0.0-0.0); Platelet Count 101 X 10*3/uL (140-440); RBC 3.42 X 10*6/uL (4.40-5.60); RDW 13.7 % (11.5-14.5); WBC 2.08 X 10*3/uL (4.50-10.00)
--- NOTE | 2023-04-06 09:52 | P.CNNES ---
History of Present Illness Consult date: 04/05/23 Requesting physician: Iris Wright Reason for Consult: Seizure History of Present Illness: Patient is a 33-year-old right-handed male with history of CVA, with residual mild right spastic hemiparesis, also seizure disorder came to the hospital early this morning at 3:18 AM for evaluation. Patient states that he initially came to the hospital by ambulance yesterday at 7:36 PM after he had a seizure at work. Patient states that he works second shift between 10:57 PM. 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 He did not fall, as his coworkers caught him. He bit his lip, but did not lose control of urine. EMS noticed patient was having tremors on the right side. His blood pressure was 125/74, pulse rate 104, respirations 18, saturation 98% and blood sugar 132. He had reported to the ER physician that he is compliant with the medication (although he told me the exact opposite today in the ER). His blood alcohol level was 49. He was started on IV fluids and potassium was replaced. Patient elected to be discharged home. After he left home, he was not feeling well, complaining of neuropathic pain in his feet and was out of his seizure medications, therefore he decided to come back to the ER and arrived early this morning at 3:18 AM. EKG shows sinus rhythm. CT head showed mild diffuse cerebral atrophy with suspected old left thalamic lacunar infarct. Patient's 2-D echo from 03/05/2023 showed moderate concentric LVH, with LVH systolic dysfunction with EF of 40-45%. No significant valvular heart disease. There is groundglass appearance of the myocardium, consider infiltrative disease. Left atrial size is normal. Patient states that on 02/18/2022 he was admitted to [facility] with an acute stroke, affected right side of the body. He arrived late to the ER and was not a candidate for TPA. While in the hospital, he had a seizure, which was felt to be related to alcohol withdrawal. Patient states that he had a second stroke on 03/24/2022 and he was admitted to [facility] in [facility]. It also affected the right side. Patient also admits to having peripheral neuropathy in his hands and feet. Patient states that he drinks fifth of vodka per day. He drinks since he was young. At present he is drinking about half pint every 2-3 days since September 2023. Patient has smoked half pack per day from age 16 until he quit smoking at age 32 (one year ago), but now he smokes 2 cigars Black and mild per day. Patient states that he was diagnosed with atrial fibrillation, and was on Eliquis since his CVA, but he stopped taking it in September 2022. Patient apparently is on Lamictal 100 mg twice a day, but patient states that he has stopped taking all his medications since September 2022. He states that he does not have medication available. Apparently patient was admitted to this hospital on 03/04/2023 for cardiac reasons. He was discharged on 03/07/2023 and apparently was given prescription of Lamictal along with multiple other medications. Patient denies having any medication. I called [facility] pharmacy, and confirmed that he was prescribed and he took home Lamictal 100 mg twice a day #60 tablets on 03/07/2023. Patient is somewhat changing his statement. He is on aspirin, HCTZ, BuSpar, metoprolol, lisinopril, Symbicort, amlodipine, B1 vitamin. Review of Systems Nosebleed sometimes Constitutional: Reports weight loss, Denies chills, Denies fever Eyes: bilateral blurred vision, bilateral diplopia, denies loss of vision Ears: deny: decreased hearing (Sometimes feels hears far away), ear discharge Ears, nose, mouth and throat: Reports headache, Reports sore throat Cardiovascular: Denies chest pain, Denies shortness of breath Respiratory: Denies cough, Denies excessive sputum Gastrointestinal: Denies abdominal pain, Denies diarrhea, Denies nausea, Denies vomiting Musculoskeletal: Reports neck pain, Denies low back pain, Denies myalgias Integumentary: Denies pruritus, Denies rash Neurological: Reports as per HPI Psychiatric: Reports anxiety, Reports depression, Denies suicidal ideation Endocrine: Reports fatigue, Reports weight change Hematologic/Lymphatic: Denies easy bleeding, Denies easy bruising Past Medical History Past Medical History: Atrial Fibrillation, CVA/TIA, Hypertension Additional Past Medical History / Comment(s): right arm weakness from CVA February 2022 History of Any Multi-Drug Resistant Organisms: None Reported Past Surgical History: No Surgical Hx Reported Additional Past Surgical History / Comment(s): pericardial window Past Anesthesia/Blood Transfusion Reactions: No Reported Reaction Past Psychological History: No Psychological Hx Reported Smoking Status: Current every day smoker Past Alcohol Use History: Daily Past Drug Use History: None Reported - Past Family History Mother Family Medical History: Diabetes Mellitus, Hypertension Father Family Medical History: Diabetes Mellitus, Hypertension Medications and Allergies Home Medications Medication Instructions Recorded Confirmed Type Metoprolol Tartrate [Lopressor] 25 mg PO BID #180 tab 03/06/23 04/05/23 Rx hydroCHLOROthiazide [Hydrodiuril] 25 mg PO DAILY #90 tab 03/06/23 04/05/23 Rx Aspirin 81 mg PO DAILY 90 Days #90 tab 03/07/23 04/05/23 Rx Budesonide-Formot 160-4.5 Mcg 2 puff INHALATION RT-BID 30 Days 03/07/23 04/05/23 Rx [Symbicort 160-4.5 Mcg Inhaler] #1 each Thiamine [Vitamin B-1] 100 mg PO DAILY 30 Days #30 tab 03/07/23 04/05/23 Rx busPIRone HCl [Buspar] 5 mg PO BID 30 Days #60 tab 03/07/23 04/05/23 Rx lamoTRIgine [LaMICtal] 100 mg PO BID 30 Days #60 tab 03/07/23 04/05/23 Rx amLODIPine [Norvasc] 5 mg PO BID 04/04/23 04/05/23 History Allergies Allergy/AdvReac Type Severity Reaction Status Date / Time No Known Allergies Allergy Verified 04/05/23 10:58 Physical Examination - Vital Signs Vital Signs: Vital Signs Temp Pulse Resp BP Pulse Ox 04/05/23 12:24 56 L 18 138/72 97 04/05/23 08:40 75 16 136/103 98 04/05/23 06:34 146/100 04/05/23 03:25 98 F 68 18 143/96 98 Intake and Output 04/04/23 04/05/23 04/05/23 22:59 06:59 14:59 Other: Weight 68.039 kg Patient is a young Afro-[place] male, in no acute distress. Patient is alert awake oriented to time place and person. He knows it is March 2023 and that is in [facility]. Speech and language functions are normal. Patient can name and repeat very well. No aphasia or dysarthria. Attention, concentration and fund of knowledge is adequate. On cranial nerve examination, pupils are equal, round and reacting to light, visual hatch are full on confrontation, with no neglect on double simultaneous stimulation. Extraocular muscles are intact with no nystagmus. Patient has very slight right facial asymmetry. His tongue protrudes to the right. Palatal elevation and sensation normal, hearing and shoulder shrug normal, facial sensation normal. On muscle strength testing, there is mild right pronation, with fanning of the fingers. Muscle strength is (right/left) deltoid 5-/5, biceps 5-/5, triceps 5- /5, crossband layer 4/5. Patient has ratchety giveaway weakness in the right arm. Hip flexion 5-/5, ankle dorsiflexion 5-/5, again with giveaway weakness. Deep tendon reflexes are (right/left) biceps 2/1, brachioradialis 1+/1, knee 2/trace, ankle 1+/0, plantar up on the right and down on left. Sensory to touch is slightly decreased in the entire right side of the body including face arm and leg. Cerebellar function showed ataxia for [id number] testing, moderately, but normal on the left. In the lower limb, patient has severe ataxia for [id number] testing on the right, but not on the left. Tone is slightly increased on the right side and bulk of muscles normal. Patient has dystonic rhythmic tremor of the right upper extremity. Gait deferred.. On general examination, there is no carotid bruit or murmur, S1-S2 audible. Chest is clear on consultation. Abdomen is soft nontender. No organomegaly, bowel sounds present. Peripheral pulses are present. No edema. Results - Laboratory Findings CBC and BMP: 04/06/23 06:47 04/05/23 09:10 Abnormal Lab Findings: Abnormal Labs 04/05/23 04/05/23 04/05/23 04:10 04:10 09:10 WBC 2.5 L RBC 3.38 L Hgb 10.9 L Hct 30.7 L Plt Count 90 L D Neutrophils # 1.1 L Creatinine 0.63 L Glucose 106 H POC Glucose (mg/dL) Calcium 8.0 L Magnesium 1.2 L Transferrin Ferritin 04/05/23 04/05/23 09:10 14:18 WBC RBC Hgb Hct Plt Count Neutrophils # Creatinine Glucose POC Glucose (mg/dL) 149 H Calcium Magnesium Transferrin 184.0 L Ferritin 1767.0 H Assessment and Plan Assessment: * Seizure disorder, came with breakthrough seizure. Patient has history of alcoholism, and recently stopped drinking, which may have triggered alcohol withdrawal seizure. Patient's blood alcohol level was 49 prior to the seizure. * History of CVA, with right spastic hemiparesis, due to history of ischemic stroke involving left basal ganglia (thalamic/internal capsular) that occurred on 02/18/2022 * Peripheral neuropathy * Congestive heart failure * Pancytopenia * Alcoholism * Tobacco use Plan: * Resume Lamictal. Patient has not been taking his Lamictal since September 2022. We will start with Lamictal 50 mg twice a day and after one week, may increase to 100 mg twice a day. This is to prevent Palacios-Masood syndrome. Watch for any rash. If any rash, will need to stop the Lamictal. * EEG evaluate for epileptiform activity * Continue aspirin 81 mg daily for stroke prevention * B12 694, ammonia 10 normal * Reported history of atrial fibrillation, patient was on Eliquis in the past, which he claims that stopped taking in September 2022. Cardiology has seen patient in February 2023 and did not mention about atrial fibrillation, or need for anticoagulation. Consider cardiology consultation for further evaluation and need for anticoagulation, or consider an event monitor placement. * Patient has pancytopenia, which could be related to alcoholism. We will perform HIV testing, patient consented. * Recommend no driving unless seizure free for 6 months, climbing ladders, operating dangerous machinery or unsupervised swimming. * Neurology will follow. Thank you for the consult. Time with Patient: Greater than 30
[2023-04-06] MEDS: SYMBICORT 160-4.5 MCG INHALER INHALATION SCH ×2 (10:53→19:32)
[2023-04-06 11:13] LABS: Basophils # (A) 0.02 X 10*3/uL (0.00-0.10); Eosinophils # (A) 0.08 X 10*3/uL (0.04-0.35); Eosinophils % (A) 3.8 %; Immature Grans, Automated 0.5 %; Lymphocytes # (A) 0.66 X 10*3/uL (0.90-5.00); Lymphocytes % (A) 31.7 %; Monocytes # (A) 0.35 X 10*3/uL (0.20-1.00); Monocytes % (A) 16.8 %; Neutrophils # (A) 0.96 X 10*3/uL (1.80-7.70); Neutrophils % (A) 46.2 %; Target Cells 2+
--- NOTE | 2023-04-06 13:01 | P.PN ---
Subjective Progress Note Date: 04/06/23 patient is a 33-year-old gentleman with past medical history significant for A. fib, CVA, hypertension, noncompliance to the ER because of numbness of his hands and feet. Patient was seen in the ER couple of days ago for possible seizure, at that time patient was told to be admitted for further workup but patient refused. Patient has not been taking any of his medications. Patient complaining of numbness in both hands and feet. States that his burning sensation in his hands up to his wrists and in the lower extremities all the way up to the calf area Denies any slurred speech. There is no complaint of weakness of any extremity. Initial lab work done in the ER showed WBC 2.5, hemoglobin 10.9, sodium 138, potassium 4, chloride 104, carbonate 28, BUN/creatinine 12, creatinine 0.63, magnesium 1.6 Patient was admitted for further evaluation and treatment 04/06. Patient seen and examined. Still complaining of pain in his hand and feet. Denies any weakness of any extremity. Denies any facial droop. Vital signs stable REVIEW OF SYSTEMS: CONSTITUTIONAL: No fever, no malaise,. CARDIOVASCULAR: No chest pain, no palpitations, no syncope. PULMONARY: No shortness of breath, no cough, GASTROINTESTINAL: No diarrhea, no nausea, no vomiting, no abdominal pain. NEUROLOGICAL: No headaches, no weakness, PHYSICAL EXAMINATION: GENERAL: The patient is alert and oriented x3, not in any acute distress. Well developed, well nourished. HEENT: Pupils are round and equally reacting to light. EOMI. No scleral icterus. No conjunctival pallor. Normocephalic, atraumatic. No pharyngeal erythema. No thyromegaly. CARDIOVASCULAR: S1 and S2 present. No murmurs, rubs, or gallops. PULMONARY: Chest is clear to auscultation, no wheezing or crackles. ABDOMEN: Soft, nontender, nondistended, normoactive bowel sounds. No palpable organomegaly. MUSCULOSKELETAL: No joint swelling or deformity. EXTREMITIES: No cyanosis, clubbing, or pedal edema. NEUROLOGICAL: Gross neurological examination did not reveal any focal deficits. SKIN: No rashes. Assessment and plan Numbness of hands and feet Seizure disorder Hypertension CVA A. fib? Alcohol abuse Hypomagnesemia Plan; Monitor vital signs Monitor CBC Monitor CMP Continue telemetry monitoring EEG ordered Continue thiamine and folic acid Continue hydrochlorothiazide and Norvasc Started patient on Lamictal by neurology Recommend no driving unless seizure free for 6 months, climbing ladders, operating dangerous machinery or unsupervised swimming. Consulted cardiology for history of paroxysmal A. fib DVT prophylaxis: Objective - Vital Signs Vital signs: Vital Signs Temp 98 F 04/06/23 07:00 Pulse 52 L 04/06/23 08:00 Resp 18 04/06/23 08:00 BP 130/86 04/06/23 07:00 Pulse Ox 100 04/06/23 07:00 FiO2 Intake & Output 04/05/23 04/06/23 04/06/23 18:59 06:59 18:59 Intake Total 118 Balance 118 Weight 68.039 kg Intake: Oral 118 Other: # Voids 3 - Labs CBC & Chem 7: 04/06/23 06:47 04/05/23 09:10 Labs: Abnormal Lab Results - Last 24 Hours (Table) 04/05/23 04/05/23 04/06/23 Range/Units 09:10 14:18 06:47 WBC 2.08 L (4.50-10.00) X 10*3/uL RBC 3.42 L (4.40-5.60) X 10*6/uL Hgb 10.8 L (13.0-17.0) g/dL Hct 30.3 L (39.6-50.0) % Plt Count 101 L (140-440) X 10*3/uL MPV 12.3 H (9.5-12.2) fL POC Glucose (mg/dL) 149 H (70-110) mg/dL Transferrin 184.0 L (204.0-354.0) mg/dL Ferritin 1767.0 H (22.0-322.0) ng/mL
--- NOTE | 2023-04-06 14:04 | CONS ---
CONSULTATION CHIEF COMPLAINT: Evaluation for atrial fibrillation. HISTORY OF PRESENT ILLNESS: This is a 33-year-old gentleman with history of some form of infiltrative heart disease with cardiomyopathy, history of right-sided CVA with mild right hemiparesis, seizure disorder who came into hospital following a breakthrough seizure and I have been consulted by the neurologist for evaluation of possible atrial fibrillation. The patient is not on anticoagulant. Apparently, he was told that he had atrial fibrillation in [place]. We do not have any of this documentation and he did not see this at last visit. The patient had several EKGs that all showed sinus rhythm and on the monitor, he is in sinus rhythm. We are going to get hold of records from [place] and he was in atrial fibrillation and so he was advised to start anticoagulant. PAST MEDICAL HISTORY: Significant for infiltrative heart disease that is currently being worked up. He had a cardiac cath that did not reveal any obstructive disease. He had an echo at last visit and was supposed to follow up with us in the office, which he never did. Past medical history is also significant for CVA, seizure disorder, and hypertension. MEDICATIONS: Medications at home include amlodipine 5 b.i.d., HydroDIURIL, Lopressor 25 b.i.d., thiamine, Lamictal, BuSpar, Symbicort, and aspirin. ALLERGIES: There are no known drug allergies. FAMILY HISTORY: Negative for premature coronary artery disease. SOCIAL HISTORY: Negative for smoking, EtOH abuse or drug abuse. REVIEW OF SYSTEMS: HEENT: Unremarkable. CARDIAC: As described above. RESPIRATORY: Negative. GI: Negative. GENITOURINARY: Negative. ALLERGY/IMMUNOLOGY: Negative. SKIN: Negative. MUSCULOSKELETAL: Significant for arthritis. PSYCHOSOCIAL: Negative. DERM: Negative. CONSTITUTIONAL: Negative. ONCOLOGICAL: Negative. Rest of the system review is not relevant. PHYSICAL EXAMINATION: GENERAL: Comfortable at rest. VITAL SIGNS: Stable. NECK: There is no jugular venous distention. CHEST: Reveals good air entry bilaterally. HEART: Reveals first and second heart sounds and a systolic murmur at the left lower sternal border. ABDOMEN: Soft. MUSCULOSKELETAL: Exam of extremities did not reveal any edema. Peripheral pulses are felt. ASSESSMENT AND PLAN: 1. History of cerebrovascular accident. 2. Seizure disorder. 3. Cardiomyopathy. Workup in progress. 4. Questionable paroxysmal atrial fibrillation. PLAN: We are going to review records from [place]. The patient should follow up with Dr. Dela Cruz, in the office so that we can continue workup for the questionable infiltrative heart disease that we noted on his echocardiogram at last visit. MMODL / IJN: [id number] /
[2023-04-06 14:08] LABS: Amphetamine Screen,Urine Not Detected (NotDetected); Barbiturate Screen,Urine Not Detected (NotDetected); Benzodiazepines Screen,Urine Detected (NotDetected); Cocaine Screen,Urine Not Detected (NotDetected); Methadone Screen, Urine Not Detected (NotDetected); Opiate Screen,Urine Detected (NotDetected); Oxycodone Screen, Urine Not Detected (NotDetected); Phencyclidine Screen,Urine Not Detected (NotDetected); Tricyclic Antidepressant,Urine Not Detected (NotDetected); Urn Cannabinoid Scrn Not Detected (NotDetected)
[2023-04-06] MEDS: GABAPENTIN 100 MG CAP PO SCH ×2 (18:25→22:05)
[2023-04-06] MEDS: lamoTRIgine 25 MG TAB PO SCH (20:31)
--- NOTE | 2023-04-07 02:19 | P.PN ---
Subjective Progress Note Date: 04/06/23 Patient was seen for a follow-up. Patient is laying comfortably in the back. No further seizures. Denies any neurological symptoms. Complaining of his neuropathy feeling worse. Objective - Vital Signs Vital signs: Vital Signs Temp 98 F 04/06/23 14:51 Pulse 81 04/06/23 14:51 Resp 18 04/06/23 14:51 BP 127/83 04/06/23 14:51 Pulse Ox 100 04/06/23 14:51 FiO2 Intake & Output 04/05/23 04/06/23 04/06/23 18:59 06:59 18:59 Intake Total 236 Balance 236 Weight 68.039 kg Intake: Oral 236 Other: # Voids 3 3 - Exam Examination essentially unchanged. - Labs CBC & Chem 7: 04/06/23 06:47 04/05/23 09:10 Labs: Abnormal Lab Results - Last 24 Hours (Table) 04/06/23 04/06/23 Range/Units 06:47 13:28 WBC 2.08 L (4.50-10.00) X 10*3/uL RBC 3.42 L (4.40-5.60) X 10*6/uL Hgb 10.8 L (13.0-17.0) g/dL Hct 30.3 L (39.6-50.0) % Plt Count 101 L (140-440) X 10*3/uL Plt Count Comment DECREASED A MPV 12.3 H (9.5-12.2) fL Neutrophils # 0.96 L (1.80-7.70) X 10*3/uL Lymphocytes # 0.66 L (0.90-5.00) X 10*3/uL Urine Opiates Screen Detected H (NotDetected) U Benzodiazepines Scrn Detected H (NotDetected) Assessment and Plan Assessment: * Seizure disorder, came with breakthrough seizure. Patient has history of alcoholism, and recently stopped drinking, which may have triggered alcohol withdrawal seizure. Patient's blood alcohol level was 49 prior to the seizur e. * History of CVA, with right spastic hemiparesis, due to history of ischemic stroke involving left basal ganglia (thalamic/internal capsular) that occurred on 02/18/2022 * Peripheral neuropathy * Congestive heart failure * Pancytopenia * Alcoholism * Tobacco use Plan: * Resume Lamictal. Patient has not been taking his Lamictal since September 2022. We will start with Lamictal 50 mg twice a day for one week and then increase to 100 mg twice a day. This is to prevent Palacios-Masood syndrome. Watch for any rash. If any rash, will need to stop the Lamictal. * EEG evaluate for epileptiform activity * Continue aspirin 81 mg daily for stroke prevention * B12 694, ammonia 10 normal * Reported history of atrial fibrillation, patient was on Eliquis in the past, which he claims he stopped taking in September 2022. Cardiology has seen patient in February 2023 and did not mention about atrial fibrillation, or need for anticoagulation. Consider cardiology consultation for further evaluation and need for anticoagulation, or consider an event monitor placement. * Patient has pancytopenia, which could be related to alcoholism. We will perform HIV testing, patient consented. * Recommend no driving unless seizure free for 6 months, climbing ladders, operating dangerous machinery or unsupervised swimming. * Dr. Jose Booker will resume neurology service in the morning.
[2023-04-07] MEDS: SYMBICORT 160-4.5 MCG INHALER INHALATION SCH ×2 (08:23→18:36)
[2023-04-07] MEDS: METOPROLOL TARTRATE 25 MG TAB PO SCH ×2 (09:27→21:01)
[2023-04-07] MEDS: amLODIPine 5 MG TAB PO SCH ×2 (09:27→21:01)
[2023-04-07] MEDS: THIAMINE 100 MG TAB PO SCH (09:27)
[2023-04-07] MEDS: busPIRone HCl 5 MG TAB PO SCH ×2 (09:27→21:01)
[2023-04-07] MEDS: ASPIRIN 81 MG PO SCH (09:27)
[2023-04-07] MEDS: GABAPENTIN 100 MG CAP PO SCH ×3 (09:27→21:01)
[2023-04-07] MEDS: hydroCHLOROthiazide 25 MG TAB PO SCH (09:28)
[2023-04-07] MEDS: lamoTRIgine 25 MG TAB PO SCH ×2 (09:28→21:01)
[2023-04-07 11:58] LABS: HIV 2 AB Non-Reactive (Non-Reactive); HIV AB P24 Non-Reactive (Non-Reactive); HIV P24 AG Non-Reactive (Non-Reactive)
[2023-04-07] MEDS: HYDROcodone/APAP 5-325MG 1 EACH TAB PO PRN ×2 (12:20→21:00)
[2023-04-07 13:27] VITALS: BMI 20.3
--- NOTE | 2023-04-07 14:32 | P.PN ---
Subjective Progress Note Date: 04/07/23 patient is a 33-year-old gentleman with past medical history significant for A. fib, CVA, hypertension, noncompliance to the ER because of numbness of his hands and feet. Patient was seen in the ER couple of days ago for possible seizure, at that time patient was told to be admitted for further workup but patient refused. Patient has not been taking any of his medications. Patient complaining of numbness in both hands and feet. States that his burning sensation in his hands up to his wrists and in the lower extremities all the way up to the calf area Denies any slurred speech. There is no complaint of weakness of any extremity. Initial lab work done in the ER showed WBC 2.5, hemoglobin 10.9, sodium 138, potassium 4, chloride 104, carbonate 28, BUN/creatinine 12, creatinine 0.63, magnesium 1.6 Patient was admitted for further evaluation and treatment 04/06. Patient seen and examined. Still complaining of pain in his hand and feet. Denies any weakness of any extremity. Denies any facial droop. Vital signs stable 04/07. Patient seen and examined. No acute issues overnight. Vital signs stable. EEG pending REVIEW OF SYSTEMS: CONSTITUTIONAL: No fever, no malaise,. CARDIOVASCULAR: No chest pain, no palpitations, no syncope. PULMONARY: No shortness of breath, no cough, GASTROINTESTINAL: No diarrhea, no nausea, no vomiting, no abdominal pain. NEUROLOGICAL: No headaches, no weakness, PHYSICAL EXAMINATION: GENERAL: The patient is alert and oriented x3, not in any acute distress. Well developed, well nourished. HEENT: Pupils are round and equally reacting to light. EOMI. No scleral icterus. No conjunctival pallor. Normocephalic, atraumatic. No pharyngeal erythema. No thyromegaly. CARDIOVASCULAR: S1 and S2 present. No murmurs, rubs, or gallops. PULMONARY: Chest is clear to auscultation, no wheezing or crackles. ABDOMEN: Soft, nontender, nondistended, normoactive bowel sounds. No palpable organomegaly. MUSCULOSKELETAL: No joint swelling or deformity. EXTREMITIES: No cyanosis, clubbing, or pedal edema. NEUROLOGICAL: Gross neurological examination did not reveal any focal deficits. SKIN: No rashes. Assessment and plan Numbness of hands and feet Seizure disorder Hypertension CVA A. fib? Cardiomyopathy Alcohol abuse Hypomagnesemia Plan; Monitor vital signs Monitor CBC Monitor CMP Continue telemetry monitoring EEG ordered Continue thiamine and folic acid Continue hydrochlorothiazide and Norvasc Continue Lamictal Recommend no driving unless seizure free for 6 months, climbing ladders, operating dangerous machinery or unsupervised swimming. Cardiology evaluated the patient recommended outpatient follow-up for his cardiomyopathy, no need for any anticoagulation at this time until there is documentation of A. fib DVT prophylaxis: Objective - Vital Signs Vital signs: Vital Signs Temp 98.1 F 04/07/23 07:00 Pulse 72 04/07/23 07:00 Resp 16 04/07/23 07:00 BP 149/100 04/07/23 07:00 Pulse Ox 100 04/07/23 07:00 FiO2 Intake & Output 04/06/23 04/07/23 04/07/23 18:59 06:59 18:59 Intake Total 476 118 Balance 476 118 Intake: Oral 476 118 Other: # Voids 3 1 - Labs CBC & Chem 7: 04/06/23 06:47 04/05/23 09:10 Labs: Abnormal Lab Results - Last 24 Hours (Table) 04/06/23 04/06/23 Range/Units 06:47 13:28 Plt Count Comment DECREASED A Neutrophils # 0.96 L (1.80-7.70) X 10*3/uL Lymphocytes # 0.66 L (0.90-5.00) X 10*3/uL Urine Opiates Screen Detected H (NotDetected) U Benzodiazepines Scrn Detected H (NotDetected)
--- NOTE | 2023-04-07 21:16 | EEG ---
ELECTROENCEPHALOGRAM REPORT CLINICAL HISTORY: This is a 33-year-old gentleman with history of seizure who presented because of breakthrough seizure. The video EEG is obtained to evaluate for seizure epileptiform activity. RELEVANT MEDICATIONS: 1. Lamictal. 2. Ativan. 3. Gabapentin. EEG TYPE: A routine 21-channel EEG is performed with video using the 10/20 electrode placement system. DESCRIPTION: Wakefulness is only obtained. During awake state, the posterior-dominant rhythm consists of [id number] voltage of 10.5 to 11 hertz activity that is well modulated and well sustained. There is no physiological stage 2 sleep architecture. There is no focal slowing. Interictal and ictal is none. ACTIVATION PROCEDURE: Photic stimulation did not evoke a posterior driving response. There is no abnormality during the photic stimulation. Hyperventilation is not performed. CLINICAL INTERPRETATION: This is a normal routine EEG. There is no focal slowing, epileptiform discharge, or seizure on the EEG. A normal routine EEG does not rule out underlying epilepsy. Clinical correlation is recommended. JOSE / NIRAJN: [id number] / JOSUÉ
[2023-04-08] MEDS: THIAMINE 100 MG TAB PO SCH (08:33)
[2023-04-08] MEDS: ASPIRIN 81 MG PO SCH (08:33)
[2023-04-08] MEDS: amLODIPine 5 MG TAB PO SCH (08:33)
[2023-04-08] MEDS: METOPROLOL TARTRATE 25 MG TAB PO SCH (08:33)
[2023-04-08] MEDS: busPIRone HCl 5 MG TAB PO SCH (08:33)
[2023-04-08] MEDS: GABAPENTIN 100 MG CAP PO SCH (08:33)
[2023-04-08] MEDS: HYDROcodone/APAP 5-325MG 1 EACH TAB PO PRN (08:33)
[2023-04-08] MEDS: SYMBICORT 160-4.5 MCG INHALER INHALATION SCH (08:56)
[2023-04-08] MEDS: hydroCHLOROthiazide 25 MG TAB PO SCH (11:14)
[2023-04-08] MEDS: lamoTRIgine 25 MG TAB PO SCH (11:14)
--- NOTE | 2023-04-08 14:18 | P.DS ---
Providers Date of admission: 04/05/23 04:10 Expected date of discharge: 04/08/23 Attending physician: Marcin Yancey Consults: 04/05/23 08:53 Consult Physician Routine Consulting Provider: Dima Downing Consult Reason/Comments: seizure Do you want consulting provider notified?: Yes Primary care physician: Stated None Hospital Course: Discharge diagnoses; Numbness of hands and feet Seizure disorder Hypertension CVA Cardiomyopathy Alcohol abuse Hypomagnesemia Hospital course; patient is a 33-year-old gentleman with past medical history significant for A. fib, CVA, hypertension, noncompliance to the ER because of numbness of his hands and feet. Patient was seen in the ER couple of days ago for possible seizure, at that time patient was told to be admitted for further workup but patient refused. Patient has not been taking any of his medications. Patient complaining of numbness in both hands and feet. States that his burning sensation in his hands up to his wrists and in the lower extremities all the way up to the calf area Denies any slurred speech. There is no complaint of weakness of any extremity. Initial lab work done in the ER showed WBC 2.5, hemoglobin 10.9, sodium 138, potassium 4, chloride 104, carbonate 28, BUN/creatinine 12, creatinine 0.63, magnesium 1.6 Patient was admitted for further evaluation and treatment 04/06. Patient seen and examined. Still complaining of pain in his hand and feet. Denies any weakness of any extremity. Denies any facial droop. Vital signs stable 04/07. Patient seen and examined. No acute issues overnight. Vital signs stable. EEG pending 04/08. Patient seen and examined. EEG did not show any epileptiform activity. Neurology cleared the patient for discharge PHYSICAL EXAMINATION: GENERAL: The patient is alert and oriented x3, not in any acute distress. Well developed, well nourished. HEENT: Pupils are round and equally reacting to light. EOMI. No scleral icterus. No conjunctival pallor. Normocephalic, atraumatic. No pharyngeal erythema. No thyromegaly. CARDIOVASCULAR: S1 and S2 present. No murmurs, rubs, or gallops. PULMONARY: Chest is clear to auscultation, no wheezing or crackles. ABDOMEN: Soft, nontender, nondistended, normoactive bowel sounds. No palpable organomegaly. MUSCULOSKELETAL: No joint swelling or deformity. EXTREMITIES: No cyanosis, clubbing, or pedal edema. NEUROLOGICAL: Gross neurological examination did not reveal any focal deficits. SKIN: No rashes. Patient Condition at Discharge: Stable Plan - Discharge Summary Discharge Rx Participant: No New Discharge Prescriptions: New lamoTRIgine [LaMICtal] 50 mg PO BID #60 tab Continue Metoprolol Tartrate [Lopressor] 25 mg PO BID #180 tab Aspirin 81 mg PO DAILY 90 Days #90 tab busPIRone HCl [Buspar] 5 mg PO BID 30 Days #60 tab Budesonide-Formot 160-4.5 Mcg [Symbicort 160-4.5 Mcg Inhaler] 2 puff INHALATION RT-BID 30 Days #1 each amLODIPine [Norvasc] 5 mg PO BID hydroCHLOROthiazide [Hydrodiuril] 25 mg PO DAILY #90 tab Thiamine [Vitamin B-1] 100 mg PO DAILY 30 Days #30 tab Discontinued lamoTRIgine [LaMICtal] 100 mg PO BID 30 Days #60 tab Discharge Medication List Metoprolol Tartrate [Lopressor] 25 mg PO BID #180 tab 03/06/23 [Rx] hydroCHLOROthiazide [Hydrodiuril] 25 mg PO DAILY #90 tab 03/06/23 [Rx] Aspirin 81 mg PO DAILY 90 Days #90 tab 03/07/23 [Rx] Budesonide-Formot 160-4.5 Mcg [Symbicort 160-4.5 Mcg Inhaler] 2 puff INHALATION RT-BID 30 Days #1 each 03/07/23 [Rx] Thiamine [Vitamin B-1] 100 mg PO DAILY 30 Days #30 tab 03/07/23 [Rx] busPIRone HCl [Buspar] 5 mg PO BID 30 Days #60 tab 03/07/23 [Rx] amLODIPine [Norvasc] 5 mg PO BID 04/04/23 [History] lamoTRIgine [LaMICtal] 50 mg PO BID #60 tab 04/08/23 [Rx] Follow up Appointment(s)/Referral(s): None,Stated [Primary Care Provider] - 1-2 days Activity/Diet/Wound Care/Special Instructions: Recommend no driving unless seizure free for 6 months, climbing ladders, operating dangerous machinery or unsupervised swimming. Discharge/Stand Alone Forms: Area PCPs Discharge Disposition: HOME SELF-CARE
[2023-04-08 14:23] VITALS: BP 137/62; PULSE 68; RESP 16; TEMP 97.9
== END 2023-04-08 15:10 | disposition home or self-care (01) ==
LOC: EC 03:18 → 6NMEDSUR 04:10
PROVIDERS: ADMIT Hospitalist; ATTEND Hospitalist
DX: G62.9 Polyneuropathy, unspecified (principal); G40.909 Epilepsy, unspecified, not intractable, without status epilepticus; D61.818 Other pancytopenia; E87.6 Hypokalemia; E83.42 Hypomagnesemia; I42.9 Cardiomyopathy, unspecified; F17.290 Nicotine dependence, other tobacco product, uncomplicated; I48.0 Paroxysmal atrial fibrillation; I69.351 Hemiplegia and hemiparesis following cerebral infarction affecting right dominant side; I11.0 Hypertensive heart disease with heart failure; I50.9 Heart failure, unspecified; F10.20 Alcohol dependence, uncomplicated; Z79.899 Other long term (current) drug therapy; Z79.82 Long term (current) use of aspirin; Z79.51 Long term (current) use of inhaled steroids; Z83.3 Family history of diabetes mellitus; Z82.49 Family history of ischemic heart disease and other diseases of the circulatory system; Z11.4 Encounter for screening for human immunodeficiency virus [HIV]; Z91.199 Patient's noncompliance with other medical treatment and regimen due to unspecified reason; Y90.0 Blood alcohol level of less than 20 mg/100 ml
CPT/HCPCS: 96365; 96366; 96372; 99284; 94640 ×5; 95816; 82747; 80048; 82607; 82728; 83540; 83550; 83735; 85025 ×2; 80306; 87390; 70450; G0378 ×4; G0480; J3411; J3475; 80320